=== PATIENT | male | born 1955 | race Caucasian/White ===

== ENCOUNTER 2020-10-09 16:25 | Inpatient (IN) | payer MEDICARE, SELFPAY ==
[2020-10-09] VITALS (22 sets, daily range): BP systolic 126–164; BP diastolic 72–126; PULSE 77–110; RESP 16–24; TEMP 36.4–36.9; O2SAT 97–100; BMI 35.2
--- NOTE | 2020-10-09 17:02 | XRR_ITS ---
PROCEDURE INFORMATION: Exam: XR Chest, 1 View Exam date and time: 10/09/2020 5:06 PM Age: 65 years old Clinical indication: Shortness of breath; Additional info: SOB, anemia TECHNIQUE: Imaging protocol: XR of the chest Views: 1 view. COMPARISON: CR Chest 1 [place] [id number] 12/03/2016 1:37 PM FINDINGS: Lungs: Left lower lobe interstitial congestion is seen. No consolidation. Pleural spaces: Unremarkable. No pleural effusion. No pneumothorax. Heart/Mediastinum: Unremarkable. There is cardiomegaly for projection Bones/joints: Metallic sternotomy wires are in place. Soft tissues: Cardiac pacemaker left anterior chest. The leads are intact and well positioned. XR/XR chest 1V portable [id number] IMPRESSION: 1. Interstitial congestion left lower lobe 2. Cardiomegaly for projection 3. Metallic sternotomy wires are in place. 4. No acute findings.
--- NOTE | 2020-10-09 17:03 | ECG_ITS ---
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 Measurements Intervals [place] Rate: 95 P: 110 VA: 123 QRS: 161 QRSD: 149 T: -13 QT: 396 QTc: 498 Interpretive Statements ELECTRONIC VENTRICULAR PACEMAKER Compared to ECG 12/03/2016 13:09:51 Right-axis deviation no longer present Electronically Signed On 10-10-2020 10:54:28 PURIFYING PLANT OPERATOR by Thomas Sandy M.D. [email or web address] [email or web address] hospitalCarbon [email or web address]/store/OM/[id number]
[2020-10-09 17:20] LABS: Basophils % 0.4 %; Eosinophils # 0.2 10^3/uL (0.0-0.8); Eosinophils % 1.6 %; Hematocrit 25.6 % (42.0-52.0); Lymphocytes # 1.8 10^3/uL (0.8-4.8); Lymphocytes % 19.2 %; Mean Corpuscular HGB Conc 24.2 g/dL (30.0-36.0); Mean Corpuscular Hemoglobin 16.7 pg (28.0-34.0); Monocytes % 10.9 %; Neutrophils # 6.22 10^3/uL (1.8-7.7); Neutrophils % 67.7 %; Nucleated Red Blood Cells % 0.2 %; Platelet Count 212 10^3/cmm (130-400); Red Blood Count 3.71 10^6/uL (4.1-5.3); Red Cell Distribution Width 21.5 % (12.1-15.1); White Blood Count 9.2 10^3/uL (4.0-10.0)
[2020-10-09 17:25] LABS: INR 1.16 (0.8-1.2)
[2020-10-09 17:26] LABS: Hemoglobin 6.2 g/dL (11.7-16.6)
[2020-10-09 17:34] LABS: Troponin(5th) Baseline 76 ng/L (0-15)
[2020-10-09 17:41] LABS: Alanine Aminotransferase 15 U/L (0-41); Alkaline Phosphatase 170 IU/L (40-130); Aspartate Amino Transferase 21 U/L (0-40); Blood Urea Nitrogen 29 mg/dL (8-23); C Reactive Protein 1.7 mg/L (0.0-4.9); Carbon Dioxide 18 mmol/L (22-29); Chloride 108 mmol/L (98-107); Globulin 2.9 g/dL (1.3-4.6); Glomerular Filtration Rate 37.8 mL/min (90-130); Glucose 105 mg/dL (65-115); NT Pro B Type Natriuretic Pept 8164 pg/mL (0-125); Osmolality Calculated 294 mOsm/kg (285-295); Sodium 139 mmol/L (136-145); Total Bilirubin 0.6 mg/dL (0.15-1.2); Total Protein 6.9 g/dL (6.6-8.7)
--- NOTE | 2020-10-09 17:41 | W.ED.GENADLT ---
HPI - General Adult General: Chief complaint: General Medical Stated complaint: here to have blood drawn Time Seen by Provider: 10/09/20 16:51 Source: patient Mode of arrival: ambulatory Limitations: no limitations History of Present Illness: HPI narrative: Patient is a 65-year-old gentleman who was sent to the emergency department by his primary care provider because of a hemoglobin of 5.9. According to the notes sent by his primary care provider the patient has not seen a healthcare provider in about 2 years and yesterday went to establish care. He has been complaining of 2 weeks of dyspnea on exertion, orthopnea, pedal edema. The patient has a pacemaker but unsure of the reason why. Patient denies any fever, endorses shortness of breath, dyspnea on exertion, orthopnea. He states he is only able to walk about 10 to 15 feet before he gets really short of breath. Onset (ago): week(s) (2) Associated symptoms: Reports dyspnea and short of breath; Deny chest pain, confusion, cough, diaphoresis, decreased appetite, fevers/chills, headache(s), malaise, nausea, rash, palpitations, seizures, syncope, vomiting or weakness Review of Systems General: Reports: 10 or more systems reviewed and unremarkable except in HPI and below Const: Denies: malaise or diaphoresis Eyes: Denies: change in vision or blurry vision ENMT: Denies: throat pain, enlarged tonsils, odynophagia, hoarseness, mouth pain or swelling of lips/tongue Card: Denies: chest pain, palpitations or syncope Resp: Reports: dyspnea GI: Denies: nausea or vomiting : Denies: flank pain, dysuria, urinary frequency, urinary urgency or urinary hesitancy Musc: Denies: neck pain, back pain or extremity swelling Skin/Breast: Denies: rash Neuro: Denies: headache(s) or confusion Endo: Denies: polyuria, polydipsia or tired all the time [facility] ED PFSH: Medical History (Updated 10/09/20 @ 23:00 by Esau Diaz MD, [facility]) Anemia Cardiac defibrillator in place CHF (congestive heart failure) Chronic renal insufficiency COPD (chronic obstructive pulmonary disease) Elevated homocysteine H/O angiography Hypertension Iron deficiency Presence of Watchman left atrial appendage closure device Recurrent ventricular tachycardia Restless leg Rotator cuff arthropathy bilateral Surgical History (Updated 10/09/20 @ 20:28 by Rolando Campa MD) H/O gastric bypass History of cholecystectomy History of knee replacement bilateral Hx of CABG Stented coronary artery Family History (Updated 10/09/20 @ 20:20 by Rolando Campa MD) Mother CAD (coronary artery disease) Social History (Reviewed 10/09/20 @ 17:44 by Esau Diaz MD, [facility]) Smoking and tobacco status: former smoker Alcohol intake: current Alcohol intake frequency: holidays/special occasions only Physical Exam Const: COMMON NORMALS: no acute distress, average body habitus, patient oriented x3, no limitations, healthy appearing, alert and well nourished HENMT: COMMON NORMALS: normocephalic, atraumatic and moist oral mucous membranes HEAD & SCALP: normocephalic and atraumatic Neck/C-Spine: COMMON NORMALS: no meningeal signs and no JVD Resp: COMMON NORMALS: normal respiratory effort, No retractions, No use of accessory muscles and percussion normal AUSCULTATION: rales and diminished lung sounds PERCUSSION: percussion normal Cardio: COMMON NORMALS: no JVD, regular rhythm, S1 normal heart sound present, S2 normal heart sound present, No gallops present (Cardio), No clicks present (Cardio), No murmurs present (Cardio), No rub (Cardio) and Peripheral pulses 2+ throughout RATE: tachycardic RHYTHM: regular rhythm HEART SOUNDS: S1 normal heart sound present, S2 normal heart sound present and Murmur heart sound present PERIPHERAL PULSES: Peripheral pulses 2+ throughout GI: COMMON NORMALS: Normal to inspection, nondistended, normoactive bowel sounds present, Soft to palpation, non-tender, No hepatosplenomegaly present, no masses and no bruits PALPATION: Yes Soft to palpation and Yes No hepatosplenomegaly present RECTAL EXAM: Yes normal sphincter tone and Yes heme positive stool Extremity: COMMON NORMALS: normal to inspection, full ROM, capillary refill normal and no calf tenderness GENERAL: Yes edema (3+ bilateral) Neuro: COMMON NORMALS: patient oriented x3 SENSORIUM/ORIENTATION: Yes alert MENINGEAL SIGNS: Yes no meningeal signs Skin: COMMON NORMALS: no rashes or lesions noted, no wounds, turgor normal, no jaundice, no petechiae and no mottling GENERAL SKIN EXAM: no rashes or lesions noted and turgor normal Course Reevaluation(s): Reevaluation #1: Discussed his lab and imaging findings with him. Explained that his symptoms are likely secondary to anemic heart failure. Her anemia is likely secondary to chronic GI losses. Advised that he needed to be admitted to the hospital for transfusion and management of the heart failure. He voiced understanding and is in agreement with the plan Time: 19:00 Consultations: Consultation #1: Discussed the patient with the hospitalist, Dr. Campa who kindly accepted the patient to his service. Time: 19:17 Vital Signs: Vital signs: Vital Signs Temperature 98.2 F 10/09/20 22: Pulse Rate 77 10/09/20 22: Respiratory Rate 16 10/09/20 22:26 Blood Pressure 164/99 10/09/20 22: Pulse Oximetry 98 10/09/20 22:10 MDM - General Adult MDM Narrative: Medical decision making narrative: This 65 year old male who has not been to a healthcare provider in at least 2 years went to see a PCP yesterday because of a 2 week history of shortness of breath, pedal edema, orthopnea and LY. Blood work done yesterday showed severe anemia and he was then asked to come to the ED. In the ED he was on heart failure, has severe anemia and has heme positive stool. He was started on blood transfusion, given a dose of intravenous furosemide and admitted to the hospitalist service for further evaluation and management. Medical Records: Attestation: I reviewed the patient's medical records. Lab Data: Attestation: I reviewed the patient's lab results. Labs: Lab Results 10/09/20 10/09/20 10/09/20 Range/Units 16:50 16:50 16:50 WBC 9.2 (4.0-10.0) 10^3/ uL RBC 3.71 L (4.1-5.3) 10^6/u L Hgb 6.2 L* (11.7-16.6) g/dL Hct 25.6 L (42.0-52.0) % MCV 69.0 L (80-94) fL MCH 16.7 L (28.0-34.0) pg MCHC 24.2 L (30.0-36.0) g/dL RDW 21.5 H (12.1-15.1) % Plt Count 212 (130-400) 10^3/c mm MPV Not Reportable Neut % (Auto) 67.7 % Lymph % (Auto) 19.2 % Forrest % (Auto) 10.9 % Eos % (Auto) 1.6 % Baso % (Auto) 0.4 % Neut # (Auto) 6.22 (1.8-7.7) 10^3/u L Lymph # (Auto) 1.8 (0.8-4.8) 10^3/u L Forrest # (Auto) 1.0 H (0.2-0.9) 10^3/u L Eos # (Auto) 0.2 (0.0-0.8) 10^3/u L Baso # (Auto) 0.0 (0.0-0.1) 10^3/u L Nucleated RBC % (a uto) 0.2 % Nucleated RBCs # 0.0 /100WBC Poikilocytosis 2+ H Anisocytosis 2+ H Ovalocytes 2+ H Raymond Cells Trace Schistocytes 1+ H PT 15.20 H (12.1-14.9) SECO NDS INR 1.16 (0.8-1.2) Sodium 139 (136-145) mmol/L Potassium 4.0 (3.5-5.1) mmol/L Chloride 108 H (98-107) mmol/L Carbon Dioxide 18 L (22-29) mmol/L Anion Gap 17.0 (5-19) BUN 29 H (8-23) mg/dL Creatinine 1.8 H (0.7-1.2) mg/dL GFR Calculation 37.8 L (90-130) mL/min Glucose 105 (65-115) mg/dL Calculated Osmolal ity 294 (285-295) mOsm/k g Calcium 8.0 L (8.5-10.5) mg/dL Total Bilirubin 0.6 (0.15-1.2) mg/dL AST 21 (0-40) U/L ALT 15 (0-41) U/L Alkaline Phosphata se 170 H (40-130) IU/L Troponin T Baselin e (0-15) ng/L Troponin T 120 Min [place] (0-15) ng/L Delta Troponin T (0-10) ABS# C-Reactive Protein 1.7 (0.0-4.9) mg/L NT-Pro-B Natriuret Pep 8164 H (0-125) pg/mL Total Protein 6.9 (6.6-8.7) g/dL Albumin 4.0 (3.5-5.2) g/dL Globulin 2.9 (1.3-4.6) g/dL Blood Type Rho(D) Type Antibody Screen Crossmatch 10/09/20 10/09/20 10/09/20 Range/Units 16:50 17:46 19:14 WBC (4.0-10.0) 10^3/ uL RBC (4.1-5.3) 10^6/u L Hgb (11.7-16.6) g/dL Hct (42.0-52.0) % MCV (80-94) fL MCH (28.0-34.0) pg MCHC (30.0-36.0) g/dL RDW (12.1-15.1) % Plt Count (130-400) 10^3/c mm MPV Neut % (Auto) % Lymph % (Auto) % Forrest % (Auto) % Eos % (Auto) % Baso % (Auto) % Neut # (Auto) (1.8-7.7) 10^3/u L Lymph # (Auto) (0.8-4.8) 10^3/u L Forrest # (Auto) (0.2-0.9) 10^3/u L Eos # (Auto) (0.0-0.8) 10^3/u L Baso # (Auto) (0.0-0.1) 10^3/u L Nucleated RBC % (a uto) % Nucleated RBCs # /100WBC Poikilocytosis Anisocytosis Ovalocytes [place] Cells Schistocytes PT (12.1-14.9) SECO NDS INR (0.8-1.2) Sodium (136-145) mmol/L Potassium (3.5-5.1) mmol/L Chloride (98-107) mmol/L Carbon Dioxide (22-29) mmol/L Anion Gap (5-19) BUN (8-23) mg/dL Creatinine (0.7-1.2) mg/dL GFR Calculation (90-130) mL/min Glucose (65-115) mg/dL Calculated Osmolal ity (285-295) mOsm/k g Calcium (8.5-10.5) mg/dL Total Bilirubin (0.15-1.2) mg/dL AST (0-40) U/L ALT (0-41) U/L Alkaline Phosphata se (40-130) IU/L Troponin T Baselin e 76 H (0-15) ng/L Troponin T 120 Min [place] 76.61 H (0-15) ng/L Delta Troponin T 0.61 (0-10) ABS# C-Reactive Protein (0.0-4.9) mg/L NT-Pro-B Natriuret Pep (0-125) pg/mL Total Protein (6.6-8.7) g/dL Albumin (3.5-5.2) g/dL Globulin (1.3-4.6) g/dL Blood Type A Positive Rho(D) Type Positive Antibody Screen Negative Crossmatch See Detail Imaging Data^: CXR: Attestation: I personally reviewed and interpreted this imaging study as follows: Radiologist's impression: [address] [address] XRay Report Signed Patient: Yobani Phoenix #: [id number] : 3Acct#:[id number] Age/Sex: 65 / MADM Date: 10/09/20 [facility] Attending Dr: Ordering Provider/Ordering MD: Esau Diaz MD, [facility] Date of Service: 10/09/20 Procedure(s): XR chest 1V portable [id number] Accession Number(s): [id number] Report Number: [id number] PROCEDURE INFORMATION: Exam: XR Chest, 1 View Exam date and time: 10/09/2020 5:06 PM Age: 65 years old Clinical indication: Shortness of breath; Additional info: SOB, anemia TECHNIQUE: Imaging protocol: XR of the chest Views: 1 view. COMPARISON: CR Chest 1 [place] [id number] 12/03/2016 1:37 PM FINDINGS: Lungs: Left lower lobe interstitial congestion is seen. No consolidation. Pleural spaces: Unremarkable. No pleural effusion. No pneumothorax. Heart/Mediastinum: Unremarkable. There is cardiomegaly for projection Bones/joints: Metallic sternotomy wires are in place. Soft tissues: Cardiac pacemaker left anterior chest. The leads are intact and well positioned. XR/XR chest 1V portable [id number] IMPRESSION: 1. Interstitial congestion left lower lobe 2. Cardiomegaly for projection 3. Metallic sternotomy wires are in place. 4. No acute findings. Dictated By:Good Del Real Signed By:Vito Del Real Date/Time:10/09/201731 DD/ 30 EKG Data^: EKG 1: Attestation: I personally reviewed and interpreted this EKG as follows: EKG interpretation date: 10/09/20 EKG interpretation time: 17:34 Prior EKG tracings: not available for review Interpretation: Ventricular pacemaker. Heart rate [address] changes Computer generated interpretation: Chest X-Ray 10/09/20 17:02 IMPRESSION: 1. Interstitial congestion left lower lobe 2. Cardiomegaly for projection 3. Metallic sternotomy wires are in place. 4. No acute findings. EKG 2: Attestation: I personally reviewed and interpreted this EKG as follows: EKG interpretation date: 10/09/20 EKG interpretation time: 18:52 Prior EKG tracings: available for review Interpretation: Ventricular paced rhythm Heart rate [address] changes. Computer generated interpretation: Chest X-Ray 10/09/20 17:02 IMPRESSION: 1. Interstitial congestion left lower lobe 2. Cardiomegaly for projection 3. Metallic sternotomy wires are in place. 4. No acute findings. Discharge Plan Discharge Patient Disposition: Admitted As Inpatient Admit Provider: Rolando Campa Clinical Impression: Acute heart failure, Coronary artery disease, Acute on chronic blood loss anemia, GI bleed Condition: Stable Coding Level of Care Code ED Cotton Picking Machine Operator for Chg Fwd Exam Comprehensive
[2020-10-09 17:57] LABS: Add RBC Morph Yes; Slide Review Slide Review Perform
[2020-10-09 17:58] LABS: RBC Morph Comp No
[2020-10-09 17:59] LABS: Ovalocytes 2+; Schistocytes 1+
[2020-10-09 18:01] LABS: Anisocytosis 2+; Burr Cells Trace; Poikilocytosis 2+
--- NOTE | 2020-10-09 18:56 | PC.NURSE ---
EKG done at 1856 and shown to ER doctor
--- NOTE | 2020-10-09 19:03 | ECG_ITS ---
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 Measurements Intervals [place] Rate: 105 P: DE: QRS: -44 QRSD: 117 T: 141 QT: 362 QTc: 480 Interpretive Statements ELECTRONIC VENTRICULAR PACEMAKER POSSIBLE UNDERLYING ATRIAL FIBRILLATION Compared to ECG 10/09/2020 17:33:51 Left-axis deviation now present Myocardial infarct finding now present Electronically Signed On 10-10-2020 11:07:46 VIRTUALIZATION ARCHITECT by Thomas Sandy M.D. [id number]
[2020-10-09] MEDS: FUROsemide 10 mg/mL SDV 4mL 40 MG IVP (19:55)
--- NOTE | 2020-10-09 20:12 | PM.HP ---
Providers/Chief Complaint Admitting Physician: Rolando Campa Primary Care Provider: Jaya Chowdhury DO Chief Complaint: here to have blood drawn History of Present Illness Tone Phoenix is a 65 year old male with a history of coronary artery disease status post bypass surgery about 30 years ago, status post AICD, history of gastric bypass surgery was referred to the emergency department because his hemoglobin checked at his doctor's office was as low as 5. Patient stated he went to his PCPs office because he was experiencing shortness of breath both at rest and with exertion as well as orthopnea. Patient states that he is not taking medications for about a year now and has not seen any physician for about 2 years. Blood work done in the emergency department demonstrated hemoglobin of 6.2. His troponin is mildly elevated. EKG demonstrated paced rhythm and T wave abnormalities. Chest x-ray demonstrated mild vascular congestion. His stool is Hemoccult positive the ED physician. Patient is started on PRBC transfusion. He is admitted for further management. Review of Systems Narrative: Patient denied any chest pain, he denied any cough or wheezing. He denied any abdominal pain. He denied any melena, hematemesis or hematuria. Except as documented, all other systems reviewed and negative. Medications/Allergies Home Medications Medication Instructions Recorded Confirmed Last Taken Type albuterol sulfate 90 mcg/actuation 2 inh INHALATION Q6H PRN #18 g 07/14/20 07/14/20 Unknown Rx aerosol inhaler tiotropium bromide 18 mcg capsule 2 cap INHALATION DAILY #60 inh 07/14/20 07/14/20 Unknown Rx with inhalation device Allergies Allergy/AdvReac Type Severity Reaction Status Date / Time adhesive Allergy Unknown unk Verified 07/14/20 09:57 Sulfa (Sulfonamide AdvReac Severe ADR-Halluci Verified 07/14/20 09:57 Antibiotics) nating alibendol AdvReac Intermediate ADR-Itching Verified 07/14/20 09:57 PFSH Acute PFSH: Medical History (Updated 10/10/20 @ 06:55 by Rolando Campa MD) Anemia Cardiac defibrillator in place CHF (congestive heart failure) Chronic renal insufficiency COPD (chronic obstructive pulmonary disease) Elevated homocysteine H/O angiography Hypertension Iron deficiency Presence of Watchman left atrial appendage closure device Recurrent ventricular tachycardia Restless leg Rotator cuff arthropathy bilateral Surgical History (Updated 10/10/20 @ 06:55 by Rolando Campa MD) H/O gastric bypass History of cholecystectomy History of knee replacement bilateral Hx of CABG Stented coronary artery Family History (Updated 10/09/20 @ 20:20 by Rolando Campa MD) Mother CAD (coronary artery disease) Social History Smoking and tobacco status: former smoker Alcohol intake: current Alcohol intake frequency: holidays/special occasions only Vitals/I&O/Wt Last Vital Signs Temp 98.2 F 10/09/20 20:09 Pulse 95 10/09/20 20:09 Resp 16 10/09/20 20:09 BP 148/72 10/09/20 20:09 Pulse Ox 100 10/09/20 20:09 10/09/20 10/09/20 10/09/20 06:59 14:59 22:59 Intake Total 0 / 0 Balance 0 / 0 Weight last 48 hrs Weight 102.058 kg Physical Exam Const: COMMON NORMALS: no acute distress and alert NUTRITIONAL APPEARANCE: obese HENMT: COMMON NORMALS: normocephalic, atraumatic, moist oral mucous membranes and oropharynx normal Eye: COMMON NORMALS: Equal, round and reactive pupils present, EOMs intact bilaterally, conjunctivae normal and no scleral icterus Neck/C-Spine: COMMON NORMALS: no lymphadenopathy, supple, no JVD and Thyroid normal Lymph: LYMPHATIC: no lymphadenopathy noted Chest: COMMONS NORMALS: normal inspection of the chest and normal palpation of entire chest wall Resp: COMMON NORMALS: normal respiratory effort, No retractions and No use of accessory muscles AUSCULTATION: rales bilateral at the base Cardio: COMMON NORMALS: S1 normal heart sound present and S2 normal heart sound present RHYTHM: abnormal rhythm irregularly irregular HEART SOUNDS: Murmur heart sound present systolic GI: COMMON NORMALS: Normal to inspection, nondistended, normoactive bowel sounds present, Soft to palpation, non-tender, No hepatosplenomegaly present, no masses and no bruits : COMMON NORMALS: Yes no CVA tenderness Back/Pelvis: COMMON NORMALS: thoraco-lumbar ROM normal Extremity: COMMON NORMALS: full ROM and no calf tenderness GENERAL: Yes edema (Bilateral lower extremities) Neuro: COMMON NORMALS: patient oriented x3, CN's II-XII intact bilaterally and no focal motor deficits Psych: COMMON NORMALS: mental status grossly normal, Normal thought process present, cooperative, normal affect and speech normal Skin: COMMON NORMALS: no rashes or lesions noted, turgor normal and no jaundice Data : 10/10/20 04:14 10/10/20 04:14 A&P Assessment and plan (1) Acute on chronic blood loss anemia: Status: Acute (2) Acute heart failure: Status: Acute (3) GI bleed: Status: Acute (4) H/O gastric bypass: Status: Chronic (5) Coronary artery disease: Status: Chronic Additional A&P Information Admit patient to the medical floor. Patient with a prior history of anemia Transfuse 2 to 3 units of PRBC for a target hemoglobin of 8. Given the history of gastric bypass, bleeding marginal ulcer not excluded. Start oral Protonix. Patient is not actively bleeding. Monitor hemoglobin and hematocrit daily. Consult to general surgery requested. Check iron profile given low MCV. Iron replacement therapy pending iron profile. Start IV Lasix for CHF exacerbation. Check echocardiogram Continue to trend troponin. Consult to cardiology for CHF. He may also need cardiology evaluation before anesthesia for endoscopy. Attestations Medical Necessity Statement*: Patient need to be hospitalized and given multiple blood transfusion for severe anemia as well as treat for acute heart failure. He is expected to spend more than 2 midnights. Time Spent in Patient Care: 63 minutes. Coding Level of Care Code Acute Clip Bolter And Wrapper for Bernabe Fwd Exam Comprehensive Diagnoses Acute on chronic blood loss anemia D62 Acute heart failure I50.9 GI bleed K92.2 H/O gastric bypass Z98.84 Coronary artery disease I25.10
[2020-10-09 20:20] LABS: Troponin 5 2HR 76.61 ng/L (0-15); Troponin 5 2HR Delta 0.61 ABS# (0-10)
--- NOTE | 2020-10-09 23:03 | ECG_ITS ---
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 Measurements Intervals [place] Rate: 97 P: IN: QRS: 170 QRSD: 139 T: -18 QT: 392 QTc: 500 Interpretive Statements ELECTRONIC VENTRICULAR PACEMAKER ABNORMAL RHYTHM ECG Compared to ECG 10/09/2020 18:52:38 Left-axis deviation no longer present Myocardial infarct finding no longer present Electronically Signed On 10-10-2020 11:00:29 SUPPLY CHAIN INTERN by Thomas Sandy M.D. [id number]
[2020-10-10] VITALS (12 sets, daily range): BP systolic 122–143; BP diastolic 74–95; PULSE 94–101; RESP 10–20; TEMP 36.6–36.9; O2SAT 97–100
[2020-10-10 01:32] LABS: Troponin 5 6HR 76.55 ng/L (0-15)
[2020-10-10 02:04] LABS: Iron 21 ug/dL (59-158); Percent Saturation 4.1 % (20-50); Total Iron Binding Capacity 501 mcg/dl; Unsaturated Iron Binding 480 ug/dL (112-347)
[2020-10-10 04:48] LABS: Basophils % 0.4 %; Eosinophils # 0.1 10^3/uL (0.0-0.8); Eosinophils % 1.6 %; Hematocrit 30.1 % (42.0-52.0); Hemoglobin 8.1 g/dL (11.7-16.6); Lymphocytes # 1.3 10^3/uL (0.8-4.8); Lymphocytes % 13.9 %; Mean Corpuscular HGB Conc 26.9 g/dL (30.0-36.0); Mean Corpuscular Hemoglobin 19.6 pg (28.0-34.0); Mean Corpuscular Volume 72.9 fL (80-94); Neutrophils # 6.54 10^3/uL (1.8-7.7); Neutrophils % 72.8 %; Nucleated Red Blood Cells % 0.2 %; Platelet Count 187 10^3/cmm (130-400); Red Blood Count 4.13 10^6/uL (4.1-5.3); Red Cell Distribution Width 22.5 % (12.1-15.1)
[2020-10-10 05:17] LABS: Blood Urea Nitrogen 27 mg/dL (8-23); Calcium 7.9 mg/dL (8.5-10.5); Carbon Dioxide 20 mmol/L (22-29); Chloride 109 mmol/L (98-107); Glomerular Filtration Rate 46.7 mL/min (90-130); Glucose 101 mg/dL (65-115); Magnesium 1.7 mg/dL (1.7-2.3); Osmolality Calculated 297 mOsm/kg (285-295); Phosphorus 3.5 mg/dL (2.5-4.5); Sodium 141 mmol/L (136-145); Thyroid Stimulating Hormone 2.87 uIU/mL (0.27-4.20)
[2020-10-10 05:18] LABS: Anion Gap 15.8 (5-19); Potassium 3.8 mmol/L (3.5-5.1)
[2020-10-10 05:23] LABS: INR 1.28 (0.8-1.2)
[2020-10-10 05:32] LABS: Chol HDL Ratio 2.56 mg/dL (1.0-5.00); Cholesterol 82 mg/dL (0-200); HDL Cholesterol 32 mg/dL (60-100); LDL Cholesterol Calculated 40 mg/dL (50-129); LDL HDL Ratio 1.25 RATIO (0.00-3.22); Triglycerides 51 mg/dL (0-150)
[2020-10-10] MEDS: FUROsemide 10 mg/mL SDV 4mL 40 MG IVP ×2 (07:54→19:57)
[2020-10-10] MEDS: pantoprazole DR 40 mg Tablet PO ×2 (07:54→17:20)
--- NOTE | 2020-10-10 10:51 | P.CONIM_ITS ---
Providers/Reason For Consult Consulting Physican/Specialty*: Kari Vaughan MD Reason for Consult*: Anemia Attending Physician: Kari Vaughan MD Primary Care Provider: Jaya Chowdhury DO History of Present Illness History of Present Illness oTne Phoenix is a 65 year old male Review of Systems General: Reports: 10 or more systems reviewed and unremarkable except in HPI and below Meds/Allergies Home Medications and Allergies Home Medications Medication Instructions Recorded Confirmed Last Taken Type albuterol sulfate 90 mcg/actuation 2 inh INHALATION Q6H PRN #18 g 07/14/20 10/10/20 10/07/20 Rx aerosol inhaler tiotropium bromide 18 mcg capsule 2 cap INHALATION DAILY #60 inh 07/14/20 10/10/20 10/07/20 Rx with inhalation device furosemide 20 mg PO DAILY@0700 10/10/20 10/10/20 10/09/20 History hydroxyzine HCl 10 mg PO Q8H PRN 10/10/20 10/10/20 10/09/20 History Allergies Allergy/AdvReac Type Severity Reaction Status Date / Time adhesive Allergy Unknown unk Verified 07/14/20 09:57 Sulfa (Sulfonamide AdvReac Severe ADR-Halluci Verified 07/14/20 09:57 Antibiotics) nating alibendol AdvReac Intermediate ADR-Itching Verified 07/14/20 09:57 Current Medications Current Medications Generic Name Dose Route Start Last Admin Trade Name Freq PRN Reason Stop Dose Admin Furosemide 40 mg 10/09/20 20:15 10/10/20 07:54 Furosemide 10 Mg/Ml Sdv 4ml IVP 10/10/20 20:16 40 mg Q12H JENN Administration Pantoprazole Sodium 40 mg 10/10/20 09:00 10/10/20 07:[address] 40 Mg Tablet PO 40 mg BID JENN Administration PFSH Acute PFSH: Medical History Anemia Cardiac defibrillator in place CHF (congestive heart failure) Chronic renal insufficiency COPD (chronic obstructive pulmonary disease) Elevated homocysteine Hypertension Iron deficiency Recurrent ventricular tachycardia Restless leg Rotator cuff arthropathy bilateral Surgical History H/O gastric bypass History of cholecystectomy History of knee replacement bilateral Hx of CABG Presence of Watchman left atrial appendage closure device Stented coronary artery Family History Mother CAD (coronary artery disease) Social History Smoking and tobacco status: former smoker Alcohol intake: current Alcohol intake frequency: holidays/special occasions only Vitals/I&O/Wt Last Vital Signs Temp 98.1 F 10/10/20 07:35 Pulse 95 10/10/20 09:14 Resp 18 10/10/20 07:35 BP 130/74 10/10/20 07:35 Pulse Ox 99 10/10/20 09:14 10/09/20 10/10/20 10/10/20 22:59 06:59 14:59 Intake Total 625 / 1155 530 / 1155 240 / 240 Output Total 800 / 1150 350 / 1150 850 / 850 Balance -175 / 5 180 / 5 -610 / -610 Weight last 48 hrs Weight 218 lb 1.6 oz Weight 225 lb Physical Exam Narrative: EXAM NARRATIVE: HEENT: Normocephalic Eye: Sclera /conjunctiva normal Abdomen: Soft to palpation Neurological: Oriented to place person and time Skin: Intact, no lesions appreciated on gross exam A&P Assessment and plan (1) GI bleed: 65-year-old male who presented with hemoglobin of 6.2. Patient has no overt signs of GI bleed. He has had a prior gastric bypass and his last colonoscopy was more than 10 years ago. 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
--- NOTE | 2020-10-10 12:58 | PM.PN ---
Subjective Subjective: Interval history: Tone Phoenix is a 65 year old male with a history of coronary artery disease status post bypass surgery about 30 years ago, status post AICD, history of gastric bypass surgery was referred to the emergency department because his hemoglobin checked at his doctor's office was 5 he was transfused prbc vitals stable evaluated by GS repeat CBC pending Vitals/I&O/Wt Last Vital Signs Temp 97.8 F 10/10/20 11:19 Pulse 95 10/10/20 11:19 Resp 18 10/10/20 11:19 BP 143/86 10/10/20 11:19 Pulse Ox 100 10/10/20 11:19 10/09/20 10/10/20 10/10/20 22:59 06:59 14:59 Intake Total 625 / 625 530 / 1155 480 / 480 Output Total 800 / 800 350 / 1150 1250 / 1250 Balance -175 / -175 180 / 5 -770 / -770 Weight last 48 hrs Weight 218 lb 1.6 oz Weight 225 lb Physical Exam Const: COMMON NORMALS: no acute distress, average body habitus, patient oriented x3 and alert ORIENTATION/CONSCIOUSNESS: Yes oriented to person Neck/C-Spine: COMMON NORMALS: no JVD Resp: COMMON NORMALS: normal respiratory effort and No retractions Cardio: COMMON NORMALS: no JVD, regular rate and regular rhythm RATE: regular rate RHYTHM: regular rhythm GI: COMMON NORMALS: Normal to inspection, nondistended, normoactive bowel sounds present and Soft to palpation PALPATION: Yes Soft to palpation Neuro: COMMON NORMALS: patient oriented x3 and CN's II-XII intact bilaterally SENSORIUM/ORIENTATION: Yes alert and Yes oriented to person Data : 10/10/20 04:14 10/10/20 04:14 A&P Assessment and plan (1) H/O gastric bypass: Status: Chronic (2) GI bleed: Status: Acute Qualifiers: GI bleed type/associated pathology: unspecified gastrointestinal hemorrhage type Qualified Code(s): K92.2 - Gastrointestinal hemorrhage, unspecified (3) Acute heart failure: Status: Acute Qualifiers: Heart failure type: unspecified Qualified Code(s): I50.9 - Heart failure, unspecified (4) Acute on chronic blood loss anemia: Status: Acute (5) Hx of CABG: Status: Acute (6) COPD (chronic obstructive pulmonary disease): Status: Acute (7) Coronary artery disease: Status: Chronic Qualifiers: Associated angina: without angina Coronary Disease-Associated Artery/Lesion type: bypass graft [place] vs. 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 transplanted heart: [place] heart
[2020-10-10 14:37] LABS: Basophils # 0.1 10^3/uL (0.0-0.1); Basophils % 0.5 %; Eosinophils # 0.2 10^3/uL (0.0-0.8); Eosinophils % 1.6 %; Hematocrit 32.1 % (42.0-52.0); Hemoglobin 8.6 g/dL (11.7-16.6); Lymphocytes % 10.4 %; Mean Corpuscular HGB Conc 26.8 g/dL (30.0-36.0); Mean Corpuscular Hemoglobin 19.5 pg (28.0-34.0); Mean Corpuscular Volume 72.6 fL (80-94); Monocytes # 1.1 10^3/uL (0.2-0.9); Monocytes % 11.5 %; Neutrophils # 6.97 10^3/uL (1.8-7.7); Neutrophils % 75.7 %; Nucleated Red Blood Cells % 0.4 %; Platelet Count 188 10^3/cmm (130-400); Red Blood Count 4.42 10^6/uL (4.1-5.3); Red Cell Distribution Width 22.6 % (12.1-15.1); White Blood Count 9.2 10^3/uL (4.0-10.0)
[2020-10-10 14:42] LABS: Lactate Dehydrogenase 448 U/L (135-225)
--- NOTE | 2020-10-10 18:17 | PC.NURSE ---
DISCHARGE IS PLACED ON HOLD PER DR. LEIGH.
--- NOTE | 2020-10-10 19:03 | P.CONIM_ITS ---
Providers/Reason For Consult Consulting Physican/Specialty*: Cardiology Reason for Consult*: Congestive heart failure Attending Physician: Kari Vaughan MD Primary Care Provider: Jaya Chowdhury DO History of Present Illness History of Present Illness Tone Phoenix is a 65 year old male past medical history significant for ischemic cardiomyopathy, severely depressed ejection fraction, history of atrial fibrillation status post watchman device, history of gastric bypass surgery, history of multiple PCI and later CABG, chronic kidney disease stage III, history of systolic heart failure was struggling with worsening of shortness of breath PND orthopnea and lower extremity edema. He went to see his primary care physician who during investigation found that he is severely anemic with hemoglobin less than 6.0. He was admitted to the hospital. No obvious GI bleed noted. Cardiac markers were abnormal in the range of 60s while EKG was paced therefore cannot be commented upon. We have been asked to assist in his care. Patient denies any chest pain but admits to tightness. Patient admits to shortness of breath upon walking few feet, patient admits to PND orthopnea and gain of 20 pounds in the past few weeks. Patient denies fever chills nausea vomiting diarrhea or syncope. Meds/Allergies Home Medications and Allergies Home Medications Medication Instructions Recorded Confirmed Last Taken Type albuterol sulfate 90 mcg/actuation 2 inh INHALATION Q6H PRN #18 g 07/14/20 10/10/20 10/07/20 Rx aerosol inhaler tiotropium bromide 18 mcg capsule 2 cap INHALATION DAILY #60 inh 07/14/20 10/10/20 10/07/20 Rx with inhalation device furosemide 20 mg PO DAILY@0700 10/10/20 10/10/20 10/09/20 History hydroxyzine HCl 10 mg PO Q8H PRN 10/10/20 10/10/20 10/09/20 History Allergies Allergy/AdvReac Type Severity Reaction Status Date / Time adhesive Allergy Unknown unk Verified 07/14/20 09:57 Sulfa (Sulfonamide AdvReac Severe ADR-Halluci Verified 07/14/20 09:57 Antibiotics) nating alibendol AdvReac Intermediate ADR-Itching Verified 07/14/20 09:57 Current Medications Current Medications Generic Name Dose Route Start Last Admin Trade Name Freq PRN Reason Stop Dose Admin Furosemide 40 mg 10/09/20 20:15 10/10/20 07:54 Furosemide 10 Mg/Ml Sdv 4ml IVP 10/10/20 20:16 40 mg Q12H JENN Administration Pantoprazole Sodium 40 mg 10/10/20 09:00 10/10/20 17:[address] 40 Mg Tablet PO 40 mg BID JENN Administration PFSH Acute PFSH: Medical History Anemia Cardiac defibrillator in place CHF (congestive heart failure) Chronic renal insufficiency COPD (chronic obstructive pulmonary disease) Elevated homocysteine Hypertension Iron deficiency Recurrent ventricular tachycardia Restless leg Rotator cuff arthropathy bilateral Surgical History H/O gastric bypass History of cholecystectomy History of knee replacement bilateral Hx of CABG Presence of Watchman left atrial appendage closure device Stented coronary artery Family History Mother CAD (coronary artery disease) Social History Smoking and tobacco status: former smoker Alcohol intake: current Alcohol intake frequency: holidays/special occasions only Vitals/I&O/Wt Last Vital Signs Temp 98.2 F 10/10/20 15:02 Pulse 95 10/10/20 15:02 Resp 10 L 10/10/20 15:02 BP 139/95 10/10/20 15:02 Pulse Ox 100 10/10/20 15:02 10/10/20 10/10/20 10/10/20 06:59 14:59 22:59 Intake Total 530 / 1155 480 / 480 240 / 720 Output Total 350 / 1150 2049 / 2049 900 / 2950 Balance 180 / 5 -1570 / -1570 -660 / -2230 Weight last 48 hrs Weight 218 lb 1.6 oz Weight 225 lb Physical Exam Narrative: EXAM NARRATIVE: GENERAL: Patient is alert, awake and oriented x3. NECK: No jugular vein distension. HEENT: No cyanosis. No icterus. No pallor. HEART: Regular S1 and S2. No murmur, rub or gallop. LUNGS: Clear to auscultate bilaterally. ABDOMEN: Soft, nontender and nondistended. Positive bowel sounds. No guarding, rebound or tenderness. CENTRAL NERVOUS SYSTEM: Grossly nonfocal. EXTREMITIES: Lower extremities with 2+ edema bilaterally. A&P Assessment and plan (1) CHF (congestive heart failure): Patient is a decompensated systolic heart failure we will start him on IV Lasix 40 mg twice daily. Would like to diurese him for -1 L in 24 hours. We will optimize his medicine. He will be benefited with transfusion which was given for anemia. Status: Inactive Qualifiers: Heart failure type: systolic Heart failure chronicity: acute on chronic Qualified Code(s): I50.23 - Acute on chronic systolic (congestive) heart failure (2) Hx of CABG: Patient has history of extensive coronary artery disease with history of CABG. Due to anemia and demand ischemia there is a troponin leak which is type II and may not represent acute coronary syndrome. Continue to monitor. Continue current regimen Status: Acute (3) Chronic renal insufficiency: Continue to monitor Status: Inactive Qualifiers: Chronic kidney disease stage: stage 3 (moderate) Chronic kidney disease stage 3 subtype: stage 3a (GFR 45-59) Qualified Code(s): N18.31 - Chronic kidney disease, stage 3a (4) Anemia: Status post transfusion currently hemoglobin is around 8.0. Dr. Marshall was consulted recommended endoscopy and colonoscopy. Status: Inactive (5) Cardiac defibrillator in place: No firing of defibrillator reported. 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
--- NOTE | 2020-10-10 20:05 | USCV_ITS ---
Tone Phoenix Age: 65 Gender: M : 1955 Exam Date: 10/10/2020 08:36 Ordering Phys: Rolando Campa MD Technologist: Courtney Jackson Exam Location: [facility] [place] Indication: CHF exacerbation BP: 122 / 75 HR: 103 Rhythm: Sinus Technical Quality: Suboptimal MEASUREMENTS (Male / Female) Normal Values 2D ECHO LV Diastolic Diameter PLAX 5.4 cm 4.2 - 5.9 / 3.9 - 5.3 cm LV Systolic Diameter PLAX 4.4 cm LV Chamber Size 6.3 cm IVS Diastolic Thickness 1.5 cm 0.6 - 1.0 / 0.6 - 0.9 cm IVS Systolic Thickness 1.7 cm LVPW Diastolic Thickness 1.3 cm 0.6 - 1.0 / 0.6 - 0.9 cm LVPW Systolic Thickness 1.8 cm RV Chamber Size 4.9 cm LVOT Diameter 2.0 cm LV Ejection Fraction 2D Teich 38.9 % LV Ejection Fraction MOD 2C 34.8 % LV Ejection Fraction 2C AL 32.5 % LA Diameter 5.4 cm LA Width 4.6 cm LA Height 5.9 cm RA Width 4.7 cm RA Height 6.4 cm Aorta at Sinotubular Diameter 2.3 cm M-MODE LV Diastolic Diameter MM 5.8 cm 4.2 - 5.9 / 3.9 - 5.3 cm LV Systolic Diameter MM 4.6 cm LV Ejection Fraction MM Teich 41.3 % IVS Diastolic Thickness MM 1.9 cm 0.6 - 1.0 / 0.6 - 0.9 cm IVS Systolic Thickness MM 2.2 cm LVPW Diastolic Thickness MM 1.7 cm 0.6 - 1.0 / 0.6 - 0.9 cm LVPW Systolic Thickness MM 1.8 cm RV Diastolic Diameter MM 3.5 cm Aortic Annulus Diameter 2.9 cm LA Ao Ratio MM 1.8 MV E Point Septal Separation 1.2 cm DOPPLER AV Peak Velocity 193.0 cm/s LVOT Peak Velocity 139.0 cm/s AV Area Cont Eq vti 2.3 cm squared AV Area Cont Eq pk 2.2 cm squared MV Area PHT 3.7 cm squared MV E' Velocity 154.0 cm/s TR Peak Velocity 285.7 cm/s TR Peak Gradient 32.6 mmHg TR Mean Velocity 199.3 cm/s TR Mean Gradient 17.9 mmHg TR Velocity Time Integral 73.1 cm TV Peak E Velocity 77.0 cm/s Right Atrial Pressure 3.0 mmHg Pulmonary Artery Systolic Pressu 35.6 mmHg PV Peak Velocity 67.0 cm/s RV Acceleration Time 0.0 s RV Ejection Time 0.3 s RV AcT/ET 0.2 FINDINGS Left Ventricle Severely increased left ventricular cavity size. Severely decreased left ventricular systolic function. Left ventricular ejection fraction is estimated at 27 %. There appeared to be global hypokinesis with regional mid to distal septal and apical akinesis with thinning suggestive of ischemic cardiomyopathy. The presence of atrial fibrillation diastolic function cannot be assessed accurately. Right Ventricle Normal right ventricular size. Catheter/pacemaker wire visualized in the right ventricle. Mild pulmonary hypertension, PASP 40 mmHg. Right Atrium Normal right atrial size. Catheter/pacemaker wire in the right atrial cavity. Left Atrium Moderately increased left atrial size. Mitral Valve Moderately thickened mitral valve. Mild mitral annular calcification. No mitral valve stenosis. Moderate mitral valve regurgitation. Aortic Valve Moderate aortic valve calcification. No aortic valve stenosis. No aortic valve regurgitation. Tricuspid Valve [id number] tricuspid valve regurgitation. Pulmonic Valve Structurally normal pulmonic valve without significant stenosis. There is no pulmonic regurgitation. Pericardium Normal pericardium without effusion. Aorta Normal ascending aorta dimension. CONCLUSIONS 1-Severely increased left ventricular cavity size. Severely decreased left ventricular systolic function. Left ventricular ejection fraction is estimated at 27 %. There appeared to be global hypokinesis with regional mid to distal septal and apical akinesis with thinning suggestive of ischemic cardiomyopathy. The presence of atrial fibrillation diastolic function cannot be assessed accurately. 2-Normal right ventricular size. Catheter/pacemaker wire visualized in the right ventricle. Mild pulmonary hypertension, PASP 40 mmHg. 3-Moderately increased left atrial size. 4-Moderately thickened mitral valve. Mild mitral annular calcification. No mitral valve stenosis. Moderate mitral valve regurgitation. 5-Moderate aortic valve calcification. No aortic valve stenosis. No aortic valve regurgitation. 4-[id number]-severe tricuspid valve regurgitation. 7-Right atrial pressure is around 10 mm of mercury. 8-No significant change since the prior echocardiogram study of November 16, 2016. Darryn Hugo MD (Electronically Signed) Final Date: 10 October 2020 16:49 S
[2020-10-11 03:06] VITALS: BP 123/66; PULSE 93; RESP 16; TEMP 36.7; O2SAT 98
[2020-10-11 04:30] LABS: Basophils # 0.1 10^3/uL (0.0-0.1); Basophils % 0.5 %; Eosinophils # 0.3 10^3/uL (0.0-0.8); Eosinophils % 2.6 %; Hematocrit 29.7 % (42.0-52.0); Lymphocytes # 1.4 10^3/uL (0.8-4.8); Mean Corpuscular HGB Conc 26.9 g/dL (30.0-36.0); Mean Corpuscular Volume 70.4 fL (80-94); Monocytes % 9.7 %; Neutrophils # 7.65 10^3/uL (1.8-7.7); Neutrophils % 73.9 %; Nucleated Red Blood Cells % 0.2 %; Platelet Count 170 10^3/cmm (130-400); Red Blood Count 4.22 10^6/uL (4.1-5.3); White Blood Count 10.4 10^3/uL (4.0-10.0)
[2020-10-11 04:52] LABS: Alanine Aminotransferase 13 U/L (0-41); Albumin Level 3.3 g/dL (3.5-5.2); Alkaline Phosphatase 154 IU/L (40-130); Anion Gap 13.5 (5-19); Aspartate Amino Transferase 21 U/L (0-40); Blood Urea Nitrogen 24 mg/dL (8-23); Calcium 7.9 mg/dL (8.5-10.5); Carbon Dioxide 24 mmol/L (22-29); Chloride 106 mmol/L (98-107); Globulin 3.2 g/dL (1.3-4.6); Glomerular Filtration Rate 43.3 mL/min (90-130); Glucose 117 mg/dL (65-115); Osmolality Calculated 295 mOsm/kg (285-295); Potassium 3.5 mmol/L (3.5-5.1); Sodium 140 mmol/L (136-145); Total Bilirubin 0.9 mg/dL (0.15-1.2); Total Protein 6.5 g/dL (6.6-8.7)
[2020-10-11 06:00] VITALS: PULSE 95
[2020-10-11 07:28] VITALS: BP 124/83; PULSE 97; RESP 20; TEMP 36.3; O2SAT 95
[2020-10-11] MEDS: pantoprazole DR 40 mg Tablet PO (09:13)
[2020-10-11 10:33] LABS: NT Pro B Type Natriuretic Pept 7467 pg/mL (0-125)
[2020-10-11 10:44] VITALS: PULSE 92; O2SAT 98
[2020-10-11 10:47] VITALS: BP 116/59; PULSE 98; RESP 18; TEMP 37; O2SAT 99
--- NOTE | 2020-10-11 11:38 | PM.DCS ---
Discharge Providers Date of Admission: 10/09/20 19:23 Date of Discharge: October 11, 2020 Attending Provider at Admission: Rolando Campa Attending Provider at Discharge: Kari Vaughan MD Primary Care Provider: Jaya Chowdhury DO Diagnoses at Discharge Discharge Diagnosis (1) CHF (congestive heart failure): Status: Inactive Qualifiers: Heart failure type: systolic Heart failure chronicity: acute on chronic Qualified Code(s): I50.23 - Acute on chronic systolic (congestive) heart failure (2) Hx of CABG: Status: Acute (3) Chronic renal insufficiency: Status: Inactive Qualifiers: Chronic kidney disease stage: stage 3 (moderate) Chronic kidney disease stage 3 subtype: stage 3a (GFR 45-59) Qualified Code(s): N18.31 - Chronic kidney disease, stage 3a (4) Anemia: Status: Inactive (5) Cardiac defibrillator in place: Status: Inactive Reason for Visit Reason for Visit: here to have blood drawn Hospital Course Hospital Course Tone Phoenix is a 65 year old male with a history of coronary artery disease status post bypass surgery about 30 years ago, status post AICD, history of gastric bypass surgery was referred to the emergency department because his hemoglobin checked at his doctor's office was as low as 5. Patient stated he went to his PCPs office because he was experiencing shortness of breath both at rest and with exertion as well as orthopnea. Patient states that he is not taking medications for about a year now and has not seen any physician for about 2 years. Blood work done in the emergency department demonstrated hemoglobin of 6.2. His troponin is mildly elevated. EKG demonstrated paced rhythm and T wave abnormalities. Chest x-ray demonstrated mild vascular congestion. His stool is Hemoccult positive the ED physician. Patient is started on PRBC transfusion. He is admitted for further management. The patient was admitted to the [facility] floor. He was given blood transfusion. Blood counts have been stable. He had an abnormal smear. Placed on PPI. surgery evaluated patient and did not recommend endoscopy. Cardiology was concerned about fluid overload. Patient was diuresed. He was discharged in stable condition. Recommended to follow-up with oncology surgery cardiology and primary care as outpatient. Physical Exam Const: COMMON NORMALS: no acute distress, average body habitus, patient oriented x3 and alert ORIENTATION/CONSCIOUSNESS: Yes oriented to person Neck/C-Spine: COMMON NORMALS: no JVD Resp: COMMON NORMALS: normal respiratory effort and No retractions Cardio: COMMON NORMALS: no JVD, regular rate and regular rhythm RATE: regular rate RHYTHM: regular rhythm GI: COMMON NORMALS: Normal to inspection, nondistended, normoactive bowel sounds present and Soft to palpation PALPATION: Yes Soft to palpation Neuro: COMMON NORMALS: patient oriented x3 and CN's II-XII intact bilaterally SENSORIUM/ORIENTATION: Yes alert and Yes oriented to person Discharge Data Data Completed and Pending: Completed Studies During Hospitalization Category Date Time Status XR chest 1V prudence ble [id number] Urgent Exams 10/09/20 17:02 Completed CV echo complete* [id number] Routine Ultrasound 10/10/20 20:05 Completed Labs from last 24 hours 10/11/20 10/11/20 10/11/20 04:08 04:08 04:08 WBC 10.4 H Corrected WBC RBC 4.22 Hgb 8.0 L Hct 29.7 L MCV 70.4 L MCH 19.0 L MCHC 26.9 L RDW 23.0 H Plt Count 170 MPV 12.0 H Gran % Neut % (Auto) 73.9 Lymph % (Auto) 13.0 [place] % (Auto) 9.7 Eos % (Auto) 2.6 Baso % (Auto) 0.5 Neut # (Auto) 7.65 Lymph # (Auto) 1.4 [place] # (Auto) 1.0 H Eos # (Auto) 0.3 Baso # (Auto) 0.1 Absolute Gran (aut o) Nucleated RBC % (a uto) 0.2 Nucleated RBCs # 0.0 Haptoglobin Sodium 140 Potassium 3.5 Chloride 106 Carbon Dioxide 24 Anion Gap 13.5 BUN 24 H Creatinine 1.6 H GFR Calculation 43.3 L Glucose 117 H Calculated Osmolal ity 295 Calcium 7.9 L Total Bilirubin 0.9 AST 21 ALT 13 Alkaline Phosphata se 154 H Lactate Dehydrogen ase NT-Pro-B Natriuret Pep 7467 H Total Protein 6.5 L Albumin 3.3 L Globulin 3.2 10/10/20 10/09/20 10/09/20 14:15 16:50 14:15 WBC 9.2 Cancelled Corrected WBC Cancelled RBC 4.42 Cancelled Hgb 8.6 L Cancelled Hct 32.1 L Cancelled MCV 72.6 L Cancelled MCH 19.5 L Cancelled MCHC 26.8 L Cancelled RDW 22.6 H Cancelled Plt Count 188 Cancelled MPV 14.0 H Cancelled Gran % Cancelled Neut % (Auto) 75.7 Cancelled Lymph % (Auto) 10.4 Cancelled [place] % (Auto) 11.5 Cancelled Eos % (Auto) 1.6 Cancelled Baso % (Auto) 0.5 Cancelled Neut # (Auto) 6.97 Cancelled Lymph # (Auto) 1.0 Cancelled [place] # (Auto) 1.1 H Cancelled Eos # (Auto) 0.2 Cancelled Baso # (Auto) 0.1 Cancelled Absolute Gran (aut o) Cancelled Nucleated RBC % (a uto) 0.4 Cancelled Nucleated RBCs # 0.0 Cancelled Haptoglobin 99.0 Sodium Potassium Chloride Carbon Dioxide Anion Gap BUN Creatinine GFR Calculation Glucose Calculated Osmolal ity Calcium Total Bilirubin AST ALT Alkaline Phosphata se Lactate Dehydrogen ase 448 H NT-Pro-B Natriuret Pep Total Protein Albumin Globulin Vitals: Last Vital Signs Temp 98.6 F 10/11/20 10:47 Pulse 98 10/11/20 10:47 Resp 18 10/11/20 10:47 BP 116/59 10/11/20 10:47 Pulse Ox 99 10/11/20 10:47 Discharge Plan Discharge Patient Disposition: Home Condition: Stable Prescriptions: New pantoprazole 40 mg Tablet,Delayed Release (Dr/Ec) 40 mg PO AC Qty: 30 RF: 0 Continued albuterol sulfate [ProAir HFA] 90 mcg/actuation HFA aerosol inhaler 2 inh inhalation Q6H PRN (Reason: shortness of breath or wheezing) Qty: 18 RF: 11 Spiriva with HandiHaler 18 mcg capsule, w/inhalation device 2 cap inhalation DAILY Qty: 60 RF: 11 furosemide 20 mg tablet 20 mg PO DAILY@0700 RF: 0 hydroxyzine HCl 10 mg tablet 10 mg PO Q8H PRN (Reason: itching/insomnia) RF: 0 Discharge Orders: Discharge Order (Routine); Ordered 10/10/20 Ordered By: Kari Vaughan Referrals: Brayan Marshall MD [Physician] - 7-10 days ([facility] Operating Room Assistant will contact you to schedule EGD and colonoscopy for anemia. If you haven't heard from them by Monday afternoon. Please call ) Darryn Hugo MD [Physician] - ([facility] will contact you to schedule an follow-up with Dr. Hugo in 1 month. If you haven't heard from them by Monday afternoon. Please call ) Fabiola Conde FNP [Nurse Practitioner] - ([facility] will contact you to schedule an follow-up with Fabiola Conde in 1 week. If you haven't heard from them by Monday afternoon. Please call ) Go Rodriguez MD [Hospitalist] - (Dr. Rodriguez's office will contact you to schedule an appointment. If you haven't heard from them by Monday. Please call NEXT AVAILABLE APPOINTMENT FOR HEMATOLOGY) Discharge Diet: Cardiac Discharge Activity: Resume usual activity Patient Instructions: Pantoprazole (By mouth), Heart Failure (DC), Anemia (DC), COPD Stoplight Discharge Attestations Time Spent in Discharge Care*: less than 30 min Quality Metrics Clinical Quality Measures During this hospital stay, did patient experience: None Coding Level of Care Code Acute Institutional Aide for g Fwd Diagnoses CHF (congestive heart failure) I50.23 Heart failure type: systolic Heart failure chronicity: acute on chronic Hx of CABG Z95.1 Chronic renal insufficiency N18.31 Chronic kidney disease stage: stage 3 (moderate) Chronic kidney disease stage 3 subtype: stage 3a (GFR 45-59) Anemia D64.[address] Z95.810
[2020-10-11 11:48] VITALS: BP 116/59; PULSE 98; RESP 18; TEMP 37; O2SAT 99
--- NOTE | 2020-10-11 12:52 | PC.NURSE ---
PATIENT DISCHARGED. NO QUESTIONS OVER DISCHARGE INSTRUCTIONS OR HOME MEDICATIONS.
== END 2020-10-11 12:52 | disposition home or self-care (01) | DRG 377 ==
LOC: ER 19:33 → CSU 19:34
PROVIDERS: Admitting Provider Internal Medicine; Emergency Provider Family Medicine; PCP Family Medicine; Visit Provider Internal Medicine
DX: K92.2 Gastrointestinal hemorrhage, unspecified (principal); I50.23 Acute on chronic systolic (congestive) heart failure; D62 Acute posthemorrhagic anemia; I13.0 Hypertensive heart and chronic kidney disease with heart failure and stage 1 through stage 4 chronic kidney disease, or unspecified chronic kidney disease; I25.10 Atherosclerotic heart disease of native coronary artery without angina pectoris; Z95.1 Presence of aortocoronary bypass graft; Z98.84 Bariatric surgery status; N18.31 Chronic kidney disease, stage 3a; J44.9 Chronic obstructive pulmonary disease, unspecified; G25.81 Restless legs syndrome; Z96.653 Presence of artificial knee joint, bilateral; I25.5 Ischemic cardiomyopathy; I48.91 Unspecified atrial fibrillation; Z79.51 Long term (current) use of inhaled steroids
CPT/HCPCS: 12345; 36415; 36430; 71045; 80048; 80053; 80061; 83010; 83540; 83550; 83615; 83735; 83880; 84100; 84443; 84484; 85025; 85610; 86140; 86850; 86900; 86920; 93005; 93306; 99283; 99291; J1940; P9016

== ENCOUNTER 2020-10-14 12:01 | Outpatient (CLI) | payer MEDICARE, SELFPAY ==
--- NOTE | 2020-10-12 16:33 | PC.RESP ---
Pulmonary Rehab information sent to patient.
[2020-10-14 12:24] LABS: Basophils % 0.4 %; Eosinophils # 0.2 10^3/uL (0.0-0.8); Eosinophils % 2.1 %; Hematocrit 31.1 % (42.0-52.0); Hemoglobin 8.2 g/dL (11.7-16.6); Lymphocytes # 1.2 10^3/uL (0.8-4.8); Lymphocytes % 10.4 %; Mean Corpuscular HGB Conc 26.4 g/dL (30.0-36.0); Mean Corpuscular Hemoglobin 19.6 pg (28.0-34.0); Mean Corpuscular Volume 74.4 fL (80-94); Monocytes # 0.9 10^3/uL (0.2-0.9); Neutrophils # 8.76 10^3/uL (1.8-7.7); Neutrophils % 78.8 %; Nucleated Red Blood Cells % 0 %; Platelet Count 165 10^3/cmm (130-400); Red Blood Count 4.18 10^6/uL (4.1-5.3); Red Cell Distribution Width 26.4 % (12.1-15.1); White Blood Count 11.1 10^3/uL (4.0-10.0)
[2020-10-14 13:06] LABS: Add RBC Morph Yes; RBC Morph Comp No; Slide Review Slide Review Perform
[2020-10-14 13:07] LABS: Ovalocytes 1+; Schistocytes Trace
[2020-10-14 13:08] LABS: Anisocytosis 1+; Poikilocytosis 2+
[2020-10-14 13:57] LABS: Ferritin 16 ng/mL (30-400); Iron 18 ug/dL (59-158); Total Iron Binding Capacity 444 mcg/dl; Unsaturated Iron Binding 426 ug/dL (112-347)
--- NOTE | 2020-10-14 14:01 | ONC CON_ITS ---
Dr. Heck New Patient Note Patient: Tone Phoenix Unit #: [id number]: [id number] Dicatated By: Debra Heck M.D.Date of Visit: Oct 14, 2020 Onc MED New Patient/Consult Referring Physician: No 'Referrals from' exist for this patient. History of Present Illness: Mr. Tone Phoenix, is a 65-year-old gentleman with a history of coronary artery disease status post bypass surgery about 30 years ago status post AICD,, congestive heart failure, chronic renal insufficiency and history of gastric bypass surgery done in 2012 in [facility] for weight reduction. As per patient about 3 years ago he felt so weak and eventually passed out and he was airlifted to the hospital, where he was diagnosed with severe anemia and received 5 units of packed RBC and then on October 09, 2020, he went to hospital with severe weakness and found to have hemoglobin around 6.2 g, patient was admitted to hospital and was given blood transfusion with that his hemoglobin improved to 8 g on October 11, 2020, patient was also in congestive heart failure so treated with diuretics, responded well, Dr. Marshall was consulted for GI evaluation as his last colonoscopy or EGD was done in 2013 in [place]. Because of patient's overall condition, endoscopic evaluation was planned as outpatient. Patient denies any history of blood transfusion except, as mentioned above about 3 years ago and then recently in October 2020. Patient denies any history of oral iron intake patient denies any history of parenteral iron infusion patient denies any history of B12 supplement patient denies any history of anemia otherwise. Patient has history of diabetic neuropathy involving lower extremities only. Patient denies any history of melena or hematochezia patient denies any history of hemoptysis or hematemesis, denies any history of jaundice denies any history of hematuria, nosebleed or gum bleed.. Patient denies any night sweats, denies any peripheral lymphadenopathy, denies any abdominal fullness, denies any recurrent fever but recent weight loss probably due to diuretics. Past Medical History: Mr. West medical history consists of chronic kidney disease (stage III), chronic obstructive pulmonary disease, chronic renal insufficiency, congestive heart failure, hypertension, recurrent ventricular tachycardia, and restless leg syndrome. Past Surgical History: Mr. West surgical/procedural history consists of angiography, bilateral knee replacement, cardiac debrillator, cholecystectomy, coronary artery bypass, and gastric bypass. Medications: There is no information available for Current Medications - Patient. Allergies: adhesives, alibendol, and Sulfa Antibiotics. Social History: Mr. Phoenix is . Mr. Phoenix no longer smokes. He drinks occasionally. Family History: There is no documented family history. Review Of Symptoms: Constitutional - Appetite is good and weight is stable. No fever, night sweats, or hot flashes. Energy level is poor, ENMT - No sinus congestion/drainage. No mouth sores. No sore throat or difficulty swallowing, Hematologic/Lymphatic - Positive for Hx of anemia, Respiratory - Positive for shortness of breath. Positive for cough. No pleuritic pain or hemoptysis, Cardiovascular - No angina pain. No palpitations, Gastrointestinal - No nausea or vomiting. No heartburn or acid reflux. Positive for diarrhea, no constipation. No blood in the stool or black stools, Genitourinary (M) - No dysuria or hematuria. Positive for urinary frequency. No urgency or incontinence, Musculoskeletal - Positive for joint pain, Neurologic - No headache Positive for dizziness, numbness and tingling. No other focal neurologic symptoms, Psychiatric - No anxiety or depression. Positive for insomnia. Vital Signs: Performed on Oct 14, 2020 12:39: 0, 32.83 (HIGH), 2.06 sq.m, 67 in, 100 %, 91 /min, 18 /min, 127/70 mm(hg), 97.7 F (LOW), and 209.6 lbs (HIGH). Performance Status: 2 - Ambulatory/capable of all self-care, unable to perform any work activities. Up and about more than 50% of waking hours. (ECOG) Physical Examination: ENMT - No mouth sores, no thrush, no jaundice, Respiratory - Lungs are clear to auscultation, Cardiovascular - Regular rate and rhythm of heart, Abdomen - Soft, bowel sounds present. Lab/Imaging: Most recent lab results are not available for this patient. Impression: Iron deficiency anemia most likely due to malabsorption as patient underwent gastric bypass in 2012 for weight reduction, other possibilities like chronic GI blood loss cannot be ruled out. And anemia of chronic renal disease, considering his age underlying myelodysplasia cannot be ruled out or due to copper deficiency Labs done on October 09, 2020 shows iron saturation of 4.1%, iron 21 TIBC 501 Congestive heart failure Coronary artery disease status post CABG status post AICD Diabetes Chronic renal insufficiency Plan: Discussed with patient regarding his labs white blood count 11.1 hemoglobin 8.2 hematocrit 31.1 platelets 165,000 MCV 74.4 anemia work-up done in hospital on October 09, 2020 shows iron 21 saturation 4.1% TIBC 501 Clinically, patient doing reasonably well, his follow-up labs shows moderate microcytic anemia due to iron deficiency probably malabsorption due to gastric bypass but chronic GI blood loss cannot be ruled out. At this point, will consider Injectafer 750 mg IV weekly x2 and then repeat CBC iron studies in 1 month Mild leukocytosis, no sign symptoms just of infection, will monitor, if no improvement consider evaluation In the meantime we will check his B12 level folate level if low, will supplement, patient is scheduled see Dr. Marshall as outpatient for endoscopic evaluation He will return to clinic 1 month after second dose of Injectafer with CBC CMP and copper level. Signed By: Debra Heck M.D. <<Signature on File>>
[2020-10-14 14:13] LABS: Vitamin B12 420 pg/mL (232-1245)
== END 2020-10-14 12:02 | disposition home or self-care (01) ==
LOC: ONCMED 12:07
PROVIDERS: PCP Nurse Practitioner Family; Visit Provider Internal Medicine Hematology & Oncology
DX: D50.9 Iron deficiency anemia, unspecified (principal); Z98.84 Bariatric surgery status; E11.22 Type 2 diabetes mellitus with diabetic chronic kidney disease; N18.9 Chronic kidney disease, unspecified; D63.1 Anemia in chronic kidney disease; I50.9 Heart failure, unspecified; D72.829 Elevated white blood cell count, unspecified; Z95.1 Presence of aortocoronary bypass graft
CPT/HCPCS: 82607; 82728; 82746; 83540; 83550; 85025; 99204

== ENCOUNTER → 2020-10-29 12:50 | Outpatient (BNVA) | payer MEDICARE, SELFPAY | PROVIDERS: PCP Nurse Practitioner Family; Visit Provider Surgery | DX: D64.9 Anemia, unspecified (principal); Z20.822 Contact with and (suspected) exposure to COVID-19 | CPT/HCPCS: 87635 ==

== ENCOUNTER 2020-11-03 06:38 | Day surgery (SDC) | payer MEDICARE, SELFPAY ==
[2020-10-30 09:03] VITALS: BMI 31.9
[2020-11-03 07:02] VITALS: BP 158/99; PULSE 95; RESP 18; TEMP 35.7; O2SAT 96
[2020-11-03] MEDS: sodium chloride 0.9% 1,000 ML 30 ML IV (07:09)
[2020-11-03 07:29] LABS: Glucose Point of Care 94 mg/dL (70-110)
--- NOTE | 2020-11-03 08:50 | W.PM.OPSUD ---
Surgery/Procedure H&P Update DATE OF PROCEDURE: November 03, 2020 DATE H&P PERFORMED: 10/23/20 H&P UPDATE INFORMATION: I have reviewed H&P completed within last 30 days, I have examined patient prior to procedure and No changes to prior documentation PREOP DIAGNOSIS: panendoscopy PLANNED PROCEDURE: Operation Date: 11/03/20 08:00 Proposed Procedures p EGD [id number] 63160 D64.9 Z86.010(Not Applicable) - Brayan Marshall MD s Colonoscopy(Not Applicable) - Brayan Marshall MD
--- NOTE | 2020-11-03 08:53 | ANES.PREANE2 ---
Pre-Anesthetic Assessment Pre-Anesthetic Assessment: Height/Weight: Height 1.7 m Weight 92.533 kg Temp Pulse Resp BP Pulse Ox 96.2 F L 95 18 158/99 96 11/03/20 07:02 11/03/20 07:02 11/03/20 07:02 11/03/20 07:02 11/03/20 07:02 Preop Diagnosis: panendoscopy Proposed Procedure: Operation Date: 11/03/20 08:00 Proposed Procedures p EGD 73342 34712 D64.9 Z86.010(Not Applicable) - Brayan Marshall MD s Colonoscopy(Not Applicable) - Brayan Marshall MD Familial anesthetic complications: None Was Beta Bill taken within 24 hours: Yes Last intake: Intake Last Liquid Date 11/02/20 Last Solid Date 11/01/20 Social: Social History: No alcohol and No tobacco Exam: Pre-Anes Outpt Exam: alert, oriented x 3, clear to auscultation bilaterally and regular rate & rhythm Airway: Cervical ROM: WNL MP: 3 Dentition: Other (1 broken tooth, 1 he removed himself just yestereday, poor dentition) Pulmonary: Pulmonary: Asthma CV/HEM: CV/HEM: Afib, Anemia, CHF and HTN Comments: EF 27%, watchman device, AICD in place : : Chronic renal Insufficiency GI: GI: GERD Anesthetic Plan: ASA status: 4 Anesthesia: MAC Risk of > 500 ml blood loss (7ml/kg in children): No Meds/Allergies Current Medications: Current Medications Generic Name Dose Route Start Last Admin Trade Name Freq PRN Reason Stop Dose Admin Sodium Chloride 1,000 mls @ 30 ml s/hr 11/03/20 07:15 11/03/20 07:09 Sodium Chloride 0.9% IV 11/04/20 07:14 30 mls/hr .Q24H JENN Administration PFSH Anesthesia PFSH: Medical History (Updated 10/23/20 @ 13:36 by Brayan Marshall MD) Anemia Cardiac defibrillator in place CHF (congestive heart failure) Chronic renal insufficiency COPD (chronic obstructive pulmonary disease) Coronary artery disease Elevated homocysteine Hypertension Iron deficiency Recurrent ventricular tachycardia Restless leg Rotator cuff arthropathy bilateral Surgical History (Updated 10/23/20 @ 12:32 by Brayan Marshall MD) H/O esophagogastroduodenoscopy H/O gastric bypass History of cholecystectomy History of knee replacement bilateral Hx of CABG Presence of Watchman left atrial appendage closure device Status post colonoscopy Stented coronary artery Family History Mother CAD (coronary artery disease) Social History (Updated 10/23/20 @ 12:24 by Duarte Felton) Smoking and tobacco status: former smoker Alcohol intake: current Alcohol intake frequency: holidays/special occasions only History of recent travel: No Data Anesthesia Other Labs: Laboratory Results - last 48 hr 11/03/20 07:25 POC Glucose 94 Cardiac Studies: No Data to Display
[2020-11-03 09:58] VITALS: BP 142/91; PULSE 97; RESP 16; TEMP 36.1; O2SAT 95
--- NOTE | 2020-11-03 09:59 | ANE.PACU2 ---
Inpatient post-anesthesia follow up: Airway intact: Yes Vital signs: Temperature 96.2 F Pulse Rate 95 Respiratory Rate 18 Blood Pressure 158/99 Pulse Oximetry 96 Oxygen Delivery Me thod Oxygen Flow Rate Fraction of Inspir ed Oxygen Hydration adequate: Yes Nausea and vomiting: No Pain level: 1 Mental status: Baseline
[2020-11-03 10:13] VITALS: BP 143/92; PULSE 95; RESP 18; O2SAT 98
== END 2020-11-03 10:32 | disposition home or self-care (01) ==
PROVIDERS: PCP Nurse Practitioner Family; Visit Provider Surgery
PROC: 0DJ08ZZ Inspection of Upper Intestinal Tract, Via Natural or Artificial Opening Endoscopic (ICD-10-PCS; CPT 43235; principal; 2020-11-03 08:00)
PROC: 0DJD8ZZ Inspection of Lower Intestinal Tract, Via Natural or Artificial Opening Endoscopic (ICD-10-PCS; CPT 45378; 2020-11-03 08:00)
DX: D64.9 Anemia, unspecified (principal); I11.0 Hypertensive heart disease with heart failure; I50.9 Heart failure, unspecified; J44.9 Chronic obstructive pulmonary disease, unspecified; I25.10 Atherosclerotic heart disease of native coronary artery without angina pectoris; Z87.891 Personal history of nicotine dependence; K63.89 Other specified diseases of intestine; K64.8 Other hemorrhoids; Z86.010 Personal history of colon polyps; J45.909 Unspecified asthma, uncomplicated; I48.91 Unspecified atrial fibrillation; K21.9 Gastro-esophageal reflux disease without esophagitis; Z95.5 Presence of coronary angioplasty implant and graft; Z98.84 Bariatric surgery status
CPT/HCPCS: 36416; 43235; 82962; 96360; 96361; G0121; J2704; J7030

== ENCOUNTER 2020-11-12 14:33 | Outpatient (CLI) | payer MEDICARE, SELFPAY ==
[2020-11-12] MEDS: sodium chloride 0.9% (100 ml) 100 ML 400 ML (15:12)
[2020-11-12] MEDS: ferric carboxy (IVPB) 750 MG in sodium chloride 0.9% (100 ml) 100 ML 460 MG IV (15:12)
== END 2020-11-12 14:34 | disposition home or self-care (01) ==
LOC: ONCMED 14:37
PROVIDERS: PCP Nurse Practitioner Family; Visit Provider Internal Medicine Hematology & Oncology
DX: D50.9 Iron deficiency anemia, unspecified (principal)
CPT/HCPCS: 96365; J1439

== ENCOUNTER 2020-11-19 06:30 | Outpatient (CLI) | payer MEDICARE, SELFPAY ==
[2020-11-19] MEDS: ferric carboxy (IVPB) 750 MG in sodium chloride 0.9% (100 ml) 100 ML 345 MG IV (15:05)
== END 2020-11-19 06:31 | disposition home or self-care (01) ==
LOC: ONCMED 06:32
PROVIDERS: PCP Nurse Practitioner Family; Visit Provider Internal Medicine Hematology & Oncology
DX: D50.9 Iron deficiency anemia, unspecified (principal)
CPT/HCPCS: 96365; J1439

== ENCOUNTER 2021-01-26 09:59 | Outpatient (CLI) | payer MEDICARE, SELFPAY ==
[2021-01-26 10:54] LABS: Basophils % 0.4 %; Eosinophils # 0.1 10^3/uL (0.0-0.8); Eosinophils % 1.7 %; Hematocrit 48.2 % (42.0-52.0); Hemoglobin 14.6 g/dL (11.7-16.6); Lymphocytes # 1.3 10^3/uL (0.8-4.8); Mean Corpuscular HGB Conc 30.3 g/dL (30.0-36.0); Mean Corpuscular Hemoglobin 27.8 pg (28.0-34.0); Mean Corpuscular Volume 91.6 fL (80-94); Monocytes # 0.4 10^3/uL (0.2-0.9); Monocytes % 7.7 %; Neutrophils # 3.48 10^3/uL (1.8-7.7); Nucleated Red Blood Cells % 0 %; Platelet Count 105 10^3/cmm (130-400); Red Blood Count 5.26 10^6/uL (4.1-5.3); Red Cell Distribution Width 19.9 % (12.1-15.1); White Blood Count 5.4 10^3/uL (4.0-10.0)
[2021-01-26 11:14] LABS: Ferritin 124 ng/mL (30-400); Iron 95 ug/dL (59-158); Percent Saturation 29.8 % (20-50); Total Iron Binding Capacity 318 mcg/dl; Unsaturated Iron Binding 223 ug/dL (112-347)
[2021-01-26 11:31] LABS: Vitamin B12 264 pg/mL (232-1245)
[2021-01-26 11:39] LABS: Folate Level 5.9 ng/mL (4.5-32.2)
[2021-01-26 11:47] LABS: Slide Review Slide Review Perform
[2021-01-30 17:38] LABS: Copper Level 76 mcg/dL (70-175)
== END 2021-01-26 10:00 | disposition home or self-care (01) ==
LOC: ONCMED 10:06
PROVIDERS: PCP Nurse Practitioner Family; Visit Provider Internal Medicine Hematology & Oncology
DX: D50.0 Iron deficiency anemia secondary to blood loss (chronic) (principal); D51.9 Vitamin B12 deficiency anemia, unspecified; R79.89 Other specified abnormal findings of blood chemistry; Z79.899 Other long term (current) drug therapy
CPT/HCPCS: 36415; 82525; 82607; 82728; 82746; 83540; 83550; 85025

== ENCOUNTER 2021-01-27 05:57 | Outpatient (CLI) | payer MEDICARE, SELFPAY ==
--- NOTE | 2021-01-27 10:40 | ONC FU_ITS ---
Dr. Heck follow up note Patient: Tone Phoenix Unit #: [id number]: [id number] Dicatated By: Debra Heck M.D.Date of Visit:January 27, 2021 Onc Med Follow-up/Prog Note History of Present Illness: Mr. Tone Phoenix, is a 66-year-old gentleman with a history of coronary artery disease status post bypass surgery about 30 years ago status post AICD,, congestive heart failure, chronic renal insufficiency and history of gastric bypass surgery done in 2012 in [facility] for weight reduction. As per patient about 3 years ago he felt so weak and eventually passed out and he was airlifted to the hospital, where he was diagnosed with severe anemia and received 5 units of packed RBC and then on October 09, 2020, he went to hospital with severe weakness and found to have hemoglobin around 6.2 g, patient was admitted to hospital and was given blood transfusion with that his hemoglobin improved to 8 g on October 11, 2020, patient was also in congestive heart failure so treated with diuretics, responded well, Dr. Marshall was consulted for GI evaluation as his last colonoscopy or EGD was done in 2012 in [place]. Because of patient's overall condition, endoscopic evaluation was planned as outpatient. Patient denies any history of blood transfusion except, as mentioned above about 3 years ago and then recently in October 2020. Patient denies any history of oral iron intake patient denies any history of parenteral iron infusion patient denies any history of B12 supplement patient denies any history of anemia otherwise. Patient has history of diabetic neuropathy involving lower extremities only. Patient denies any history of melena or hematochezia patient denies any history of hemoptysis or hematemesis, denies any history of jaundice denies any history of hematuria, nosebleed or gum bleed.. Patient denies any night sweats, denies any peripheral lymphadenopathy, denies any abdominal fullness, denies any recurrent fever but recent weight loss probably due to diuretics. Patient was given Injectafer 750 mg IV weekly x2 in November 2020, with that his hemoglobin improved from 8.2 g before infusion to 14.6 g after, his iron studies shows ferritin was 16 prior to infusion 124 after. His B12 was 264, he was started on monthly B12 supplements Came for follow-up, denies any specific complaints, feeling much better since iron infusion. More energetic, no more shortness of breath, dyspnea on exertion has improved significantly, no peripheral numbness, no nausea or vomiting, no fever chills overall feeling well Medications: Carvedilol 1 Tablet (of 6.25 mg) Oral b.i.d., Potassium Chloride ER 1 Tablet (of 20 meq) Tablet, controlled release Oral daily, Stiolto Respimat 1 Inhalation (of 2.5-2.5 mcg/act) Aerosol, solution Inhalation daily Allergies: adhesives, alibendol, and Sulfa Antibiotics. Review of Systems: Review of Systems is not available for this patient. Vital Signs: Vitals are not available for this patient. Performance Status: 0 - Fully active, able to carry on all predisease activities without restrictions. (ECOG) Physical Examination: ENMT - No mouth sores, no thrush, no jaundice, Respiratory - Lungs are clear to auscultation, Cardiovascular - Regular rate and rhythm of heart, Abdomen - Soft, bowel sounds present, Extremities - No visible edema. Lab/Imaging: Test performed on Oct 14, 2020 12:15 Ferritin 16 ng/mL Folate, Serum 16.0 ng/mL Iron 18 mcg/dL Vitamin B12 420 pg/mL Iron Binding Capacity (TIBC) 444 mcg/dl % Iron Saturation 4.0 % UIBC 426 mcg/dL WBC 11.1 10 3/uL RBC 4.18 10 6/uL Anisocytosis 1+ HGB 8.2 g/dL HCT 31.1 % MCV 74.4 fL MCH 19.6 pg Poikilocytosis 2+ MCHC 26.4 g/dL RDW 26.4 % Platelet Count 165 10 3/cmm Neutrophils 8.76 10 3/uL Lymphocytes 1.2 10 3/uL Monocytes 0.9 10 3/uL Ovalocytes 1+ Eosinophils 0.2 10 3/uL Basophils 0.0 10 3/uL Schistocytes Trace Neutrophil % 78.8 % Lymphocyte % 10.4 % Monocyte % 8.0 % Eosinophil % 2.1 % Basophils % 0.4 % NRBC % 0 % CBC Slide Review Slide Review Perform Impression: Iron deficiency anemia most likely due to malabsorption as patient underwent gastric bypass in 2012 for weight reduction, other possibilities like chronic GI blood loss cannot be ruled out. And anemia of chronic renal disease, considering his age underlying myelodysplasia cannot be ruled out or due to copper deficiency Labs done on October 09, 2020 shows iron saturation of 4.1%, iron 21 TIBC 501, Injectafer 750 mg weekly x2 was given in November 2020, with excellent response hemoglobin gone up to 14.6 g compared to 8.2 g prior to infusion and ferritin 124 and iron saturation 29.8 and iron 95 compared to ferritin 16, iron saturation 4, iron 18 prior to infusion, B12 264 On January 26, 2021, started on monthly B12 supplement Congestive heart failure Coronary artery disease status post CABG status post AICD Diabetes Chronic renal insufficiency Plan: Discussed with patient regarding his labs white blood count 5.4 hemoglobin 14.6 hematocrit 48.2 platelets 105,000, compared to 165 previously, iron saturation 29.8% ferritin 124 compared to 16 previously, B12 264 Clinically, patient is doing well, more energetic, dyspnea on exertion improved significantly, his lab work-up shows normalization of iron deficiency anemia and iron stores within normal range but his B12 on the low side of normal could be due to B12 malabsorption due to gastric bypass surgery, will consider B12 supplement 1000 mcg IM monthly His CBC shows mild thrombocytopenia etiology unclear could be transient or mild ITP or primary bone marrow disorder due to copper deficiency, which is common in gastric bypass patient, copper level is pending, will monitor his platelet count and if copper level is low, will consider supplement Return to clinic in 1 month with CBC and iron studies, will also follow-up with GI work-up Signed By: Debra Heck M.D. <<Signature on File>>
[2021-01-27] MEDS: cyanocobalamin 1,000 mcg/mL SDV 1000 MCG SUBCUT (11:00)
== END 2021-01-27 05:58 | disposition home or self-care (01) ==
LOC: ONCMED 06:03
PROVIDERS: PCP Nurse Practitioner Family; Visit Provider Internal Medicine Hematology & Oncology
DX: D50.9 Iron deficiency anemia, unspecified (principal); D51.9 Vitamin B12 deficiency anemia, unspecified; K90.9 Intestinal malabsorption, unspecified; I50.9 Heart failure, unspecified; E11.59 Type 2 diabetes mellitus with other circulatory complications; I25.10 Atherosclerotic heart disease of native coronary artery without angina pectoris; Z95.5 Presence of coronary angioplasty implant and graft; E11.22 Type 2 diabetes mellitus with diabetic chronic kidney disease; N18.9 Chronic kidney disease, unspecified; Z79.899 Other long term (current) drug therapy
CPT/HCPCS: 96372; 99215; J3420

== ENCOUNTER 2021-03-02 11:14 | Outpatient (CLI) | payer MEDICARE, SELFPAY ==
[2021-03-02 12:40] LABS: Basophils % 0.3 %; Eosinophils # 0.1 10^3/uL (0.0-0.8); Hematocrit 49.1 % (42.0-52.0); Hemoglobin 15.4 g/dL (11.7-16.6); Lymphocytes # 1.5 10^3/uL (0.8-4.8); Lymphocytes % 23.3 %; Mean Corpuscular HGB Conc 31.4 g/dL (30.0-36.0); Mean Corpuscular Volume 92.5 fL (80-94); Mean Platelet Volume 11.8 fL (7.4-10.4); Monocytes # 0.6 10^3/uL (0.2-0.9); Monocytes % 10.3 %; Neutrophils # 4.03 10^3/uL (1.8-7.7); Neutrophils % 64.8 %; Nucleated Red Blood Cells % 0 %; Platelet Count 112 10^3/cmm (130-400); Positive M 1; Red Blood Count 5.31 10^6/uL (4.1-5.3); Red Cell Distribution Width 15.1 % (12.1-15.1); White Blood Count 6.2 10^3/uL (4.0-10.0)
[2021-03-02 13:02] LABS: Ferritin 107 ng/mL (30-400); Iron 74 ug/dL (59-158); Percent Saturation 25.4 % (20-50); Total Iron Binding Capacity 291 mcg/dl; Unsaturated Iron Binding 217 ug/dL (112-347)
[2021-03-02 13:08] LABS: Slide Review Slide Review Perform
[2021-03-02] MEDS: cyanocobalamin 1,000 mcg/mL SDV 1000 MCG SUBCUT (13:30)
--- NOTE | 2021-03-02 17:14 | ONC FU_ITS ---
Dr. Heck follow up note Patient: Tone Phoenix Unit #: [id number]: 1955 Dicatated By: Debra Heck M.D.Date of Visit:Mar 02, 2021 Onc Med Follow-up/Prog Note History of Present Illness: Mr. Tone Phoenix, is a 66-year-old gentleman with a history of coronary artery disease status post bypass surgery about 30 years ago status post AICD,, congestive heart failure, chronic renal insufficiency and history of gastric bypass surgery done in 2012 in [facility] for weight reduction. As per patient about 3 years ago he felt so weak and eventually passed out and he was airlifted to the hospital, where he was diagnosed with severe anemia and received 5 units of packed RBC and then on October 09, 2020, he went to hospital with severe weakness and found to have hemoglobin around 6.2 g, patient was admitted to hospital and was given blood transfusion with that his hemoglobin improved to 8 g on October 11, 2020, patient was also in congestive heart failure so treated with diuretics, responded well, Dr. Marshall was consulted for GI evaluation as his last colonoscopy or EGD was done in 2012 in [place]. Because of patient's overall condition, endoscopic evaluation was planned as outpatient. Patient denies any history of blood transfusion except, as mentioned above about 3 years ago and then recently in October 2020. Patient denies any history of oral iron intake patient denies any history of parenteral iron infusion patient denies any history of B12 supplement patient denies any history of anemia otherwise. Patient has history of diabetic neuropathy involving lower extremities only. Patient denies any history of melena or hematochezia patient denies any history of hemoptysis or hematemesis, denies any history of jaundice denies any history of hematuria, nosebleed or gum bleed.. Patient denies any night sweats, denies any peripheral lymphadenopathy, denies any abdominal fullness, denies any recurrent fever but recent weight loss probably due to diuretics. Patient was given Injectafer 750 mg IV weekly x2 in November 2020, with that his hemoglobin improved from 8.2 g before infusion to 14.6 g after, his iron studies shows ferritin was 16 prior to infusion 124 after. His B12 was 264, he was started on monthly B12 supplements Came for follow-up, denies any specific complaints,More energetic since received parenteral iron and now on B12 supplement, no fever chills, no nausea or vomiting, no diarrhea or constipation, no shortness of breath or palpitation, tolerating monthly B12 supplement well Medications: Carvedilol 1 Tablet (of 6.25 mg) Oral b.i.d., Potassium Chloride ER 1 Tablet (of 20 meq) Tablet, controlled release Oral daily, Stiolto Respimat 1 Inhalation (of 2.5-2.5 mcg/act) Aerosol, solution Inhalation daily Allergies: adhesives, alibendol, and Sulfa Antibiotics. Review of Systems: Review of Systems is not available for this patient. Vital Signs: Performed on Mar 02, 2021 13:12 Height - 67.00 in Weight - 180 lbs (LOW) BSA - 1.93 sq.m BMI - 28.19 Temperature - 97.9 F (LOW) Pulse - 96 /min Respiration - 18 /min BP - 135/90 mm(hg) O2 Sat - 99 % Pain - 0 Fatigue - 0 Performance Status: 0 - Fully active, able to carry on all predisease activities without restrictions. (ECOG) Physical Examination: ENMT - No mouth sores, no thrush, no cervical lymphadenopathy, Respiratory - Lungs are clear to auscultation, Cardiovascular - Regular rate and rhythm of heart, Abdomen - Soft, bowel sounds present, Extremities - No visible edema or rash. Lab/Imaging: Test performed on Oct 14, 2020 12:15 Ferritin 16 ng/mL Folate, Serum 16.0 ng/mL Iron 18 mcg/dL Vitamin B12 420 pg/mL Iron Binding Capacity (TIBC) 444 mcg/dl % Iron Saturation 4.0 % UIBC 426 mcg/dL WBC 11.1 10 3/uL RBC 4.18 10 6/uL Anisocytosis 1+ HGB 8.2 g/dL HCT 31.1 % MCV 74.4 fL MCH 19.6 pg Poikilocytosis 2+ MCHC 26.4 g/dL RDW 26.4 % Platelet Count 165 10 3/cmm Neutrophils 8.76 10 3/uL Lymphocytes 1.2 10 3/uL Monocytes 0.9 10 3/uL Ovalocytes 1+ Eosinophils 0.2 10 3/uL Basophils 0.0 10 3/uL Schistocytes Trace Neutrophil % 78.8 % Lymphocyte % 10.4 % Monocyte % 8.0 % Eosinophil % 2.1 % Basophils % 0.4 % NRBC % 0 % CBC Slide Review Slide Review Perform Impression: Iron deficiency anemia most likely due to malabsorption as patient underwent gastric bypass in 2012 for weight reduction, other possibilities like chronic GI blood loss cannot be ruled out. And anemia of chronic renal disease, considering his age underlying myelodysplasia cannot be ruled out or due to copper deficiency Labs done on October 09, 2020 shows iron saturation of 4.1%, iron 21 TIBC 501, Injectafer 750 mg weekly x2 was given in November 2020, with excellent response hemoglobin gone up to 14.6 g compared to 8.2 g prior to infusion and ferritin 124 and iron saturation 29.8 and iron 95 compared to ferritin 16, iron saturation 4, iron 18 prior to infusion, B12 264 On January 26, 2021, started on monthly B12 supplement Congestive heart failure Coronary artery disease status post CABG status post AICD Diabetes Chronic renal insufficiency Plan: Discussed with patient regarding his concern and questions, his lab work-up done recently shows his copper level is on the low side of normal, 76 normal being 70-175, Clinically, patient is doing well with no new signs symptom, more energetic, tolerating monthly B12 supplement well and we will also consider copper supplement, he will take 2 mg p.o. daily while continue with monthly B12 supplement received next dose today and and continue monthly then he will return to 3 months with CBC iron studies and copper level Signed By: Debra Heck M.D. <<Signature on File>>
== END 2021-03-02 11:15 | disposition home or self-care (01) ==
LOC: ONCMED 11:16
PROVIDERS: PCP Nurse Practitioner Family; Visit Provider Internal Medicine Hematology & Oncology
DX: D50.9 Iron deficiency anemia, unspecified (principal); K90.9 Intestinal malabsorption, unspecified; D51.9 Vitamin B12 deficiency anemia, unspecified; I50.9 Heart failure, unspecified; E11.59 Type 2 diabetes mellitus with other circulatory complications; I25.10 Atherosclerotic heart disease of native coronary artery without angina pectoris; Z95.5 Presence of coronary angioplasty implant and graft; E11.22 Type 2 diabetes mellitus with diabetic chronic kidney disease; N18.9 Chronic kidney disease, unspecified; Z79.899 Other long term (current) drug therapy
CPT/HCPCS: 36415; 82728; 83540; 83550; 85025; 96372; 99215; J3420

== ENCOUNTER 2021-05-17 13:32 | Outpatient (CLI) | payer MEDICARE, SELFPAY ==
[2021-05-17 14:50] LABS: Basophils % 0.5 %; Eosinophils # 0.1 10^3/uL (0.0-0.8); Eosinophils % 1.7 %; Hematocrit 44.9 % (42.0-52.0); Hemoglobin 14.5 g/dL (11.7-16.6); Lymphocytes # 1.3 10^3/uL (0.8-4.8); Lymphocytes % 19.9 %; Mean Corpuscular HGB Conc 32.3 g/dL (30.0-36.0); Mean Corpuscular Hemoglobin 31.5 pg (28.0-34.0); Mean Corpuscular Volume 97.4 fl (80-94); Mean Platelet Volume 12.7 fL (7.4-10.4); Monocytes # 0.7 10^3/uL (0.2-0.9); Monocytes % 10.6 %; Neutrophils # 4.32 10^3/uL (1.8-7.7); Nucleated Red Blood Cells % 0 %; Platelet Count 117 10^3/cmm (130-400); Red Blood Count 4.61 10^6/uL (4.1-5.3); Red Cell Distribution Width 14.2 % (12.1-15.1); White Blood Count 6.4 10^3/uL (4.0-10.0)
[2021-05-17 15:14] LABS: Ferritin 101 ng/mL (30-400); Iron 64 ug/dL (59-158); Percent Saturation 24.6 % (20-50); Total Iron Binding Capacity 260 mcg/dl; Unsaturated Iron Binding 196 ug/dL (112-347)
[2021-05-25 23:08] LABS: Copper Level 76 mcg/dL (70-175)
== END 2021-05-17 13:33 | disposition home or self-care (01) ==
LOC: ONCMED 13:37
PROVIDERS: PCP Nurse Practitioner Family; Visit Provider Internal Medicine Hematology & Oncology
DX: D50.9 Iron deficiency anemia, unspecified (principal)
CPT/HCPCS: 36415; 82525; 82728; 83540; 83550; 85025

== ENCOUNTER 2021-06-07 14:15 | Outpatient (CLI) | payer MEDICARE, SELFPAY ==
[2021-06-07] MEDS: cyanocobalamin 1,000 mcg/mL SDV 1000 MCG SUBCUT (15:15)
--- NOTE | 2021-06-10 18:04 | ONC FU_ITS ---
Dr. Heck follow up note Patient: Tone Phoenix Unit #: [id number]: 1955 Dicatated By: Debra Heck M.D.Date of Visit:Jun 07, 2021 Onc Med Follow-up/Prog Note History of Present Illness: Mr. Tone Phoenix, is a 66-year-old gentleman with a history of coronary artery disease status post bypass surgery about 30 years ago status post AICD,, congestive heart failure, chronic renal insufficiency and history of gastric bypass surgery done in 2012 in [facility] for weight reduction. As per patient about 3 years ago he felt so weak and eventually passed out and he was airlifted to the hospital, where he was diagnosed with severe anemia and received 5 units of packed RBC and then on October 09, 2020, he went to hospital with severe weakness and found to have hemoglobin around 6.2 g, patient was admitted to hospital and was given blood transfusion with that his hemoglobin improved to 8 g on October 11, 2020, patient was also in congestive heart failure so treated with diuretics, responded well, Dr. Marshall was consulted for GI evaluation as his last colonoscopy or EGD was done in 2012 in [place]. Because of patient's overall condition, endoscopic evaluation was planned as outpatient. Patient denies any history of blood transfusion except, as mentioned above about 3 years ago and then recently in October 2020. Patient denies any history of oral iron intake patient denies any history of parenteral iron infusion patient denies any history of B12 supplement patient denies any history of anemia otherwise. Patient has history of diabetic neuropathy involving lower extremities only. Patient denies any history of melena or hematochezia patient denies any history of hemoptysis or hematemesis, denies any history of jaundice denies any history of hematuria, nosebleed or gum bleed.. Patient denies any night sweats, denies any peripheral lymphadenopathy, denies any abdominal fullness, denies any recurrent fever but recent weight loss probably due to diuretics. Patient was given Injectafer 750 mg IV weekly x2 in November 2020, with that his hemoglobin improved from 8.2 g before infusion to 14.6 g after, his iron studies shows ferritin was 16 prior to infusion 124 after. His B12 was 264, he was started on monthly B12 supplements Came for follow-up, denies any specific complaints, no fever chills, no nausea or vomiting, no diarrhea or constipation, no shortness of breath or palpitation, no jaundice, tolerating copper supplement and B12 monthly well Medications: Carvedilol 1 Tablet (of 6.25 mg) Oral b.i.d., Potassium Chloride ER 1 Tablet (of 20 meq) Tablet, controlled release Oral daily, Stiolto Respimat 1 Inhalation (of 2.5-2.5 mcg/act) Aerosol, solution Inhalation daily Allergies: adhesives, alibendol, and Sulfa Antibiotics. Review of Systems: Review of Systems is not available for this patient. Vital Signs: Performed on Jun 07, 2021 14:55 Height - 67.00 in Weight - 174 lbs (LOW) BSA - 1.91 sq.m BMI - 27.25 Temperature - 98.6 F Pulse - 96 /min Respiration - 18 /min BP - 126/85 mm(hg) O2 Sat - 97 % Pain - 0 Fatigue - 0 Performance Status: 0 - Fully active, able to carry on all predisease activities without restrictions. (ECOG) Physical Examination: No mouth sores, no thrush, no jaundice - Lungs are clear to auscultation without rhonchi or wheezing, Cardiovascular - Regular rate and rhythm Abdomen -Soft, bowel sounds present Extremities - No visible edema Lab/Imaging: Most recent lab results are not available for this patient. Impression: Iron deficiency anemia most likely due to malabsorption as patient underwent gastric bypass in 2012 for weight reduction, other possibilities like chronic GI blood loss cannot be ruled out. And anemia of chronic renal disease, considering his age underlying myelodysplasia cannot be ruled out or due to copper deficiency Labs done on October 09, 2020 shows iron saturation of 4.1%, iron 21 TIBC 501, Injectafer 750 mg weekly x2 was given in November 2020, with excellent response hemoglobin gone up to 14.6 g compared to 8.2 g prior to infusion and ferritin 124 and iron saturation 29.8 and iron 95 compared to ferritin 16, iron saturation 4, iron 18 prior to infusion, B12 264 On January 26, 2021, started on monthly B12 supplement Congestive heart failure Coronary artery disease status post CABG status post AICD Diabetes Chronic renal insufficiency Plan: Discussed with patient regarding his labs white blood count 6.4 hemoglobin 14.5 compared to 15.4 earlier hematocrit 44.9 platelets 117,000 compared to 112,000 previously iron studies shows iron saturation 24.6% copper 76 ferritin 101 iron 64 TIBC 260 Clinically, patient doing well with no new signs symptoms her follow-up labs shows normal hemoglobin and stores, will continue with copper supplement along with monthly B12 and follow his CBC As far as mild thrombocytopenia is concerned, his platelet count is stable rather improving we will continue to monitor return to clinic in 3 months with CBC and B12 and copper level Signed By: Debra Heck M.D. <<Signature on File>>
== END 2021-06-07 14:16 | disposition home or self-care (01) ==
LOC: ONCMED 14:19
PROVIDERS: PCP Nurse Practitioner Family; Visit Provider Internal Medicine Hematology & Oncology
DX: D50.9 Iron deficiency anemia, unspecified (principal); I50.9 Heart failure, unspecified; I25.10 Atherosclerotic heart disease of native coronary artery without angina pectoris; Z95.1 Presence of aortocoronary bypass graft; E11.9 Type 2 diabetes mellitus without complications; N18.9 Chronic kidney disease, unspecified; Z79.899 Other long term (current) drug therapy
CPT/HCPCS: 96372; 99214; J3420

== ENCOUNTER 2021-07-05 14:58 | Outpatient (CLI) | payer MEDICARE, SELFPAY ==
[2021-07-05] MEDS: cyanocobalamin 1,000 mcg/mL SDV 1000 MCG SUBCUT (15:20)
== END 2021-07-05 14:59 | disposition home or self-care (01) ==
PROVIDERS: PCP Nurse Practitioner Family; Visit Provider Internal Medicine Medical Oncology
DX: E53.8 Deficiency of other specified B group vitamins (principal)
CPT/HCPCS: 96372; J3420

== ENCOUNTER 2021-08-04 13:55 | Outpatient (CLI) | payer MEDICARE, SELFPAY ==
[2021-08-04] MEDS: cyanocobalamin 1,000 mcg/mL SDV 1000 MCG SUBCUT (14:14)
== END 2021-08-04 13:56 | disposition home or self-care (01) ==
LOC: ONCMED 13:58
PROVIDERS: PCP Family Medicine; Visit Provider Internal Medicine Medical Oncology
DX: D50.9 Iron deficiency anemia, unspecified (principal); D51.9 Vitamin B12 deficiency anemia, unspecified; Z79.899 Other long term (current) drug therapy
CPT/HCPCS: 96372; J3420

== ENCOUNTER 2021-09-27 08:50 | Outpatient (CLI) | payer MEDICARE, SELFPAY ==
[2021-09-27 09:39] LABS: Basophils % 0.4 %; Eosinophils # 0.1 10^3/uL (0.0-0.8); Eosinophils % 1.4 %; Hematocrit 49.6 % (42.0-52.0); Hemoglobin 16.2 g/dL (11.7-16.6); Lymphocytes # 1.5 10^3/uL (0.8-4.8); Lymphocytes % 21.2 %; Mean Corpuscular HGB Conc 32.7 g/dL (30.0-36.0); Mean Platelet Volume 12.3 fL (7.4-10.4); Monocytes # 0.7 10^3/uL (0.2-0.9); Monocytes % 9.6 %; Neutrophils % 67.1 %; Nucleated Red Blood Cells % 0 %; Platelet Count 114 10^3/cmm (130-400); Red Blood Count 5.22 10^6/uL (4.1-5.3); White Blood Count 7.2 10^3/uL (4.0-10.0)
[2021-09-27 10:16] LABS: Vitamin B12 469 pg/mL (232-1245)
[2021-09-27] MEDS: cyanocobalamin 1,000 mcg/mL SDV 1000 MCG SUBCUT (12:20)
[2021-10-01 17:52] LABS: Copper Level 79 mcg/dL (70-175)
== END 2021-09-27 08:51 | disposition home or self-care (01) ==
LOC: ONCMED 08:55
PROVIDERS: Visit Provider Nurse Practitioner Family
DX: D51.9 Vitamin B12 deficiency anemia, unspecified (principal); D50.9 Iron deficiency anemia, unspecified
CPT/HCPCS: 36415; 82525; 82607; 85025; 96372; 99214; J3420